=== PATIENT | male | born 1950 | race African-American/Black ===

== ENCOUNTER 2017-03-17 15:28 | Emergency (ER) | payer MEDICARE, OTHER ==
[~2017-03-17] VITALS: Ht 182.9 cm; Wt 93.0 kg
[2017-03-17 15:28] VITALS: BP 100/68
[~2017-03-17 15:28] MED LIST: ACET500T68 PO; AMLO5TAB4 PO; ASPI325T8 PO; ATOR20TA58 PO; ATROPINE; BISA10SU2 RC; CARV3.122 PO; DIVA125C PO; DOCU100T5 PO; FLUV100T2 PO; FLUV25TA PO; LEVE500T6 PO; MAGN2400 PO; MECL12.52 PO; MELA3TAB2 PO; MENT118G TP; MIRA25TA PO; MIRT15TA PO; MULT-658 PO; POLY17PO29 PO; QUET25TA PO; TRAZ100T12 PO; VOLTAREN GEL
--- NOTE | 2017-03-17 16:00 | RAD ---
Indication pain and swelling secondary to an injury. AP oblique and lateral views of the right ankle were obtained. There is an oblique, nondisplaced, traumatic fracture involving the lateral malleolus. There is soft tissue swelling. IMPRESSION: Fractured lateral malleolus, nondisplaced
[2017-03-17] MEDS ORDERED: TRAM50TA PO (16:02)
--- NOTE | 2017-03-17 16:02 | PHYS DOC ---
Past Medical History Past Medical History: Anemia, Anxiety, Constipation, CVA, Dementia, Depression , Hypertension, Seizure, Other Additional Past Medical Histor: INSOMNIA,HYPERLIPIDEMIA,CONTRACTURE RIGHT HAND/ ARM Past Surgical History: Other Additional Past Surgical Histo: Unknown Alcohol Use: None Drug Use: None Adult General Chief Complaint Chief Complaint: MECHANICAL FALL HPI HPI Patient is a pleasant 66-year-old -[place] male who is presently living at [facility] where last night while walking he slipped and fell and rotational motion injuring his right ankle. He was able to ambulate without issue although pain and swelling have increased and his inability to walk and equal is decreased. 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 Earlier today patient was sent to an outpatient imaging center having the ankle injured he had ankle series of x-rays completed. It was read initially as an ankle fracture involving the lateral malleolus with no displacement the joint alignment is maintained patient has mild soft tissue swelling. At that point long-term staff called the ambulance for transportation to our facility for an evaluation. At this point patient has no new numbness and tingling to his foot. He complains of pain to the lateral malleolus of the right ankle without foot pain. He denies any back pain, hip pain or knee pain on the right side. Review of Systems Review of Systems Constitutional: Denies fever or chills patient is hungry Eyes: Denies change in visual acuity, redness, or eye pain [] HENT: Denies nasal congestion or sore throat [] Respiratory: Denies cough or shortness of breath [] Cardiovascular: No additional information not addressed in HPI [] GI: Denies abdominal pain, nausea, vomiting, bloody stools or diarrhea [] : Denies dysuria or hematuria [] Musculoskeletal: Is only complaint is of right ankle pain. Integument: Denies rash or skin lesions [] Neurologic: Denies headache, focal weakness or sensory changes [] Endocrine: Denies polyuria or polydipsia [] Allergies Allergies Allergies Coded Allergies Type Severity Reaction Last Updated Verified No Known Drug Allergies 03/06/15 No Physical Exam Physical Exam Vital signs recorded patient's chart are unremarkable and if within normal limits. Constitutional: Well developed, well nourished, no acute distress, non-toxic appearance. [] Cardiovascular:Heart rate regular rhythm, no murmur [] Lungs & Thorax: Bilateral breath sounds clear to auscultation [] Skin: Warm, dry, no erythema, no rash. [] Extremities: No traits soft tissue swelling and to palpation of the lateral malleolus of the Neurologic: Alert and oriented X 3, normal motor function, normal sensory function, no focal deficits noted. [] Psychologic: Affect normal, judgement normal, mood normal. [] Current Patient Data Vital Signs Vital Signs Date Time Temp Pulse Resp B/P (MAP) Pulse Ox O2 Delivery O2 Flow Rate FiO2 03/17/17 15:28 99.4 68 18 100/68 (79) 94 Room Air 99.4 EKG EKG [] Radiology/Procedures Radiology/Procedures [] 3 view x-ray of the ankle completed at 3:50 PM 03/17/2017 demonstrates a nondisplaced lateral malleolus fracture with her class B without involvement of the joint alignment of the joint seems intact. There is severe degenerative joint changes within the joint itself. No evidence of subluxation of the talus. X-rays read by Dr. Garcia. Course & Med Decision Making Course & Med Decision Making Pertinent Labs and Imaging studies reviewed. (See chart for details) [] Dragon Disclaimer Dragon Disclaimer This electronic medical record was generated, in whole or in part, using a voice recognition dictation system. Departure Departure Impression: Primary Impression: Fx lateral malleolus-closed Disposition: 01 HOME, SELF-CARE Condition: STABLE Referrals: FREDI CHING MD (PCP) Patient Instructions: Ankle Fracture Additional Instructions: Please return for any new or increasing pain not treated with medications or feel any question concerns. Please return for any decreased sensation of the foot or if you have any inability to follow-up with orthopedic surgery. Scripts Tramadol Hcl (TRAMADOL HCL) 50 Mg Tablet 1 TAB PO PRN Q6HRS, #30 TAB Prov: MARYLIN GARCIA MD 03/17/17 MARYLIN GARCIA MD Mar 17, 2017 16:02
== END 2017-03-17 16:45 | disposition home or self-care (01) ==
LOC: ER 15:28
DX: S82.64XA Nondisplaced fracture of lateral malleolus of right fibula, initial encounter for closed fracture (principal); F03.91 Unspecified dementia, unspecified severity, with behavioral disturbance; E78.5 Hyperlipidemia, unspecified; F23 Brief psychotic disorder; F42.9 Obsessive-compulsive disorder, unspecified; G40.909 Epilepsy, unspecified, not intractable, without status epilepticus; I10 Essential (primary) hypertension; Z86.73 Personal history of transient ischemic attack (TIA), and cerebral infarction without residual deficits; Z86.2 Personal history of diseases of the blood and blood-forming organs and certain disorders involving the immune mechanism; W01.0XXA Fall on same level from slipping, tripping and stumbling without subsequent striking against object, initial encounter; Y93.89 Activity, other specified; Y99.8 Other external cause status; Y92.89 Other specified places as the place of occurrence of the external cause
CPT/HCPCS: 29515; 73610; 99284-25

== ENCOUNTER 2020-04-04 02:04 | Inpatient (IN) | payer MEDICARE, OTHER ==
[~2020-04-04] VITALS: Ht 188 cm; Wt 92.6 kg
[~2020-04-04 02:04] MED LIST changes: +ACET325T9 PO; +AMLO10TA4 PO; +AMOX500C PO; -BISA10SU2 RC; +BISA10SU4 RC; +CARV3.1210 PO; -CARV3.122 PO; -DIVA125C PO; +DIVA125C2 PO; -MAGN2400 PO; +MAGN24003 PO; -MECL12.52 PO; +MECL12.573 PO; -MELA3TAB2 PO; +MELA3TAB4 PO; +TRAM50TA PO; +TRAZ-123 PO; -TRAZ100T12 PO
--- NOTE | 2020-04-04 02:25 | PHYS DOC ---
Past Medical History Past Medical History: Anemia, Anxiety, Constipation, CVA, Dementia, Depression, High Cholesterol, Hypertension, Seizure, Other Additional Past Medical Histor: INSOMNIA,CONTRACTURE L HAND/ARM,BPH Past Surgical History: Other Additional Past Surgical Histo: Unknown Smoking Status: Never Smoker Alcohol Use: None Drug Use: None General Adult EDM: Chief Complaint: respiratory distress, COVID positive HPI: HPI: Patient is a 69 year old male who presents for evaluation of increasing respirator stress of the last couple of days. Patient is from a nursing facility with significant chronic medical problems. Patient has had a prior stroke and has contractures to his left upper arm. Patient states he had a recent productive cough. He was tested his facility and was positive for COVID in the past couple of days. Patient has known exposure to COVID as well. Patient arrived via EMS for evaluation. Patient is hypertensive with a blood pressure 88 over palp on presentation. Review of Systems: Review of Systems: Constitutional: has recent fever or chills. [] Eyes: Denies change in visual acuity. [] HENT: has nasal congestion [] Respiratory: has cough and shortness of breath. [] Cardiovascular: Denies chest pain has edema. [] GI: Denies abdominal pain, nausea, vomiting, bloody stools or diarrhea. [] : Denies dysuria. [] Musculoskeletal: Denies back pain or joint pain. [] Integument: Denies rash. [] Neurologic: Denies headache, has chronic left side focal weakness or sensory changes. [] Endocrine: Denies polyuria or polydipsia. [] Lymphatic: Denies swollen glands. [] Psychiatric: Denies depression or anxiety. [] Heart Score: HEART Score for Chest Pain: HEART Score for Chest Pain Response (Comments) Value History Slighlty/Non-Suspicious 0 ECG Normal 0 Age > 65 2 Risk Factors >3 Risk Factors or Hx CAD 2 Troponin < Normal Limit 0 Total 4 Risk Factors: Risk Factors: DM, Current or recent (<one month) smoker, HTN, HLP, family history of CAD, obesity. Risk Scores: Score 0 - 3: 2.5% MACE over next 6 weeks - Discharge Home Score 4 - 6: 20.3% MACE over next 6 weeks - Admit for Clinical Observation Score 7 - 10: 72.7% MACE over next 6 weeks - Early Invasive Strategies Current Medications: Current Medications Medications (Trade) Dose Ordered Sig/Tata Start Time Stop Time Status Last Admin Dose Admin Ceftriaxone Sodium (Rocephin) 1 gm 1X ONCE 04/04/20 02:30 04/04/20 02:31 Sodium Chloride 1,000 ml @ 100 mls/hr Q10H 04/04/20 02:30 04/04/20 12:29 Allergies: Allergies: Allergies Coded Allergies Type Severity Reaction Last Updated Verified No Known Drug Allergies 03/06/15 No Physical Exam: PE: Constitutional: Well developed, well nourished, moderate acute distress. [] HENT: Normocephalic, atraumatic, bilateral external ears normal, oropharynx somewhat dry, no oral exudates, nose normal. [] Eyes: PERRL, EOMI, conjunctiva normal, no discharge. [] Neck: Normal range of motion, no tenderness, supple, no stridor. [] Cardiovascular:Heart rate tachy regular rhythm, no murmur [] Lungs & Thorax: Bilateral breath sounds diminished to auscultation, some wheezing present [] Abdomen: Bowel sounds diminished, soft, no tenderness, no masses. [] Skin: Warm, dry, no erythema, no rash. [] Back: No tenderness. [] Extremities: No tenderness, no cyanosis, ROM intact, some edema. [] Neurologic: Alert and oriented, contracture left upper extremity. [] Psychologic: Affect abnormal, judgement normal, mood abnormal. [] Current Patient Data: Labs: Laboratory Tests Test 04/04/20 02:13 04/04/20 02:25 Lactic Acid Level 0.7 mmol/L White Blood Count 10.0 x10^3/uL Red Blood Count 4.11 x10^6/uL Hemoglobin 11.5 g/dL Hematocrit 34.5 % Mean Corpuscular Volume 84 fL Mean Corpuscular Hemoglobin 28 pg Mean Corpuscular Hemoglobin Concent 33 g/dL Red Cell Distribution Width 14.9 % Platelet Count 312 x10^3/uL Neutrophils (%) (Auto) 86 % Lymphocytes (%) (Auto) 7 % Monocytes (%) (Auto) 7 % Eosinophils (%) (Auto) 0 % Basophils (%) (Auto) 0 % Neutrophils # (Auto) 8.5 x10^3/uL Lymphocytes # (Auto) 0.7 x10^3/uL Monocytes # (Auto) 0.7 x10^3/uL Eosinophils # (Auto) 0.0 x10^3/uL Basophils # (Auto) 0.0 x10^3/uL Platelet Estimate Pending Sodium Level 135 mmol/L Potassium Level 4.1 mmol/L Chloride Level 101 mmol/L Carbon Dioxide Level 26 mmol/L Anion Gap 8 Blood Urea Nitrogen 29 mg/dL Creatinine 1.4 mg/dL Estimated GFR (Cockcroft-Gault) 60.4 BUN/Creatinine Ratio 21 Glucose Level 110 mg/dL Calcium Level 8.2 mg/dL Total Bilirubin 1.6 mg/dL Aspartate Amino Transf (AST/SGOT) 68 U/L Alanine Aminotransferase (ALT/SGPT) 54 U/L Alkaline Phosphatase 105 U/L Troponin I Quantitative < 0.017 ng/mL GX-Djo-V-Type Natriuretic Peptide 149 pg/mL Total Protein 7.3 g/dL Albumin 2.3 g/dL Albumin/Globulin Ratio 0.5 Current Medications Medications (Trade) Dose Ordered Sig/Tata Route PRN Reason Start Time Stop Time Status Last Admin Dose Admin Sodium Chloride 1,000 ml @ 100 mls/hr Q10H IV 04/04/20 02:30 04/04/20 12:29 04/04/20 02:51 Ceftriaxone Sodium (Rocephin) 1 gm 1X ONCE IVP 04/04/20 02:30 04/04/20 02:31 DC 04/04/20 02:52 Methylprednisolone Sodium Succinate (SOLU-Medrol 125MG VIAL) 125 mg 1X ONCE IV 04/04/20 03:00 04/04/20 03:01 DC 04/04/20 02:52 EKG: EKG: Normal sinus rhythm, rate 66, leftward axis, some flattened T waves noted in V6, artifact present, not STEMI read at 2:53 AM [] Radiology/Procedures: Radiology/Procedures: [facility] [address] [place], [place] [id number] IMAGING REPORT Signed PATIENT: CARISA CHEEMA ACCOUNT: [id number] : 1950 LOCATION: ER AGE: 69 SEX: M EXAM STATUS: REG ER ORD. PHYSICIAN: CHRISTY YOUNGBLOOD DO REASON: short of air, COVID positive PROCEDURE: PORTABLE CHEST 1V Study: CR PORTABLE CHEST 1V Indication: Shortness of air. Comparison: 02/18/2019 Findings: Unchanged configuration of the cardiomediastinal silhouette which is at the upper limits of normal for size. Vascular calcifications. Redemonstrated asymmetric elevation of the left hemidiaphragm with overlying volume loss. Ill-defined infiltrate at the right lower lung. No layering effusion or pneumothorax. Partially imaged chronic deformity at the proximal left humerus. Impression: Ill-defined infiltrate at the lower right lung either atelectasis or infectious in etiology. Follow-up is recommended to confirm resolution. Electronically signed by: ANTONIA BADILLO MD (04/04/2020 4:10 AM) [id number] DICTATED and SIGNED BY: ANTONIA BADILLO MD DATE: 04/04/20 0410 [] Course & Med Decision Making: Course & Med Decision Making Pertinent Labs and Imaging studies reviewed. (See chart for details) [] Dragon Disclaimer: Dragon Disclaimer: This electronic medical record was generated, in whole or in part, using a voice recognition dictation system. 0415 stable, breathing somewhat easier at this time. There is an early infiltrate noted on his x-ray. I suspect patient has COVID pneumonia. He has a positive result from his nursing facility. Patient will admitted for stabilization. Paperwork shows that Dr. Mead is his physician. He will be paged now to discuss case Departure Departure Impression: Primary Impression: Pneumonia due to COVID-19 virus Additional Impression: Hypoxia Disposition: ADMITTED INPATIENT Condition: STABLE Referrals: FREDI MEAD MD (PCP) Justicifation of Admission Dx: Justifications for Admission: Justification of Admission Dx: Yes Comments: COVID pneumonia with hypoxia COVID-19 Assessment: COVID-19 Patient Risks: Age 65 or older: Yes Sign of co-morbidity: Yes Exp to person + for COVID: Yes Exp to PUI: Yes Travel from affected area: No Lower respiratory symptoms: Yes Fever: Yes Other: Yes Comments: known COVID positive prior to arrival PPE Use: Full PPE with N95 mask or PAPR: Yes CHRISTY YOUNGBLOOD DO Apr 04, 2020 02:25
[2020-04-04] MEDS ORDERED: cefTRIAXone IV Push 1 GM VIAL. IVP ONE (02:30)
[2020-04-04] MEDS ORDERED: IV NORMAL SALINE 1000ML BAG 1,000 ML IV SCH (02:30)
[2020-04-04 02:36] LABS: BASO % 0 % (0-3); EOS % 0 % (0-3); HEMATOCRIT 34.5 % (39.0-53.0); HEMOGLOBIN 11.5 g/dL (13.0-17.5); LYMPH # 0.7 x10^3/uL (1.0-4.8); LYMPH % 7 % (24-48); MEAN CORPUSCULAR HEMOGLOBIN 28 pg (25-35); MEAN CORPUSCULAR HGB CONC 33 g/dL (31-37); MEAN CORPUSCULAR VOLUME 84 fL (79-100); MONO # 0.7 x10^3/uL (0.0-1.1); MONO % 7 % (0-9); NEUT # 8.5 x10^3/uL (1.8-7.7); NEUT % 86 % (31-73); PLATELET COUNT 312 x10^3/uL (140-400); RED BLOOD COUNT 4.11 x10^6/uL (4.30-5.70); RED CELL DISTRIBUTION WIDTH 14.9 % (11.5-14.5)
[2020-04-04] MEDS ORDERED: methylPREDNISolone SOD SUCC PF 125 MG/2 ML VIAL. IV ONE (03:00)
[2020-04-04 03:05] LABS: CALCIUM 8.2 mg/dL (8.5-10.1); CREATININE 1.4 mg/dL (0.7-1.3); GFR 60.4; POTASSIUM 4.1 mmol/L (3.5-5.1)
[2020-04-04 03:11] LABS: ALBUMIN 2.3 g/dL (3.4-5.0); ALBUMIN/GLOBULIN RATIO 0.5 (1.0-1.7); TOTAL BILIRUBIN 1.6 mg/dL (0.2-1.0); TOTAL PROTEIN 7.3 g/dL (6.4-8.2)
--- NOTE | 2020-04-04 04:13 | RAD ---
Study: CR PORTABLE CHEST 1V Indication: Shortness of air. Comparison: 02/18/2019 Findings: Unchanged configuration of the cardiomediastinal silhouette which is at the upper limits of normal for size. Vascular calcifications. Redemonstrated asymmetric elevation of the left hemidiaphragm with overlying volume loss. Ill-defined infiltrate at the right lower lung. No layering effusion or pneumothorax. Partially imaged chronic deformity at the proximal left humerus. Impression: Ill-defined infiltrate at the lower right lung either atelectasis or infectious in etiology. Follow-up is recommended to confirm resolution. Electronically signed by: ANTONIA BADILLO MD (04/04/2020 4:10 AM) [id number]
[2020-04-04 04:23] LABS: BILIRUBIN,URINE MODERATE (NEG); CLARITY,URINE CLEAR; COLOR,URINE ORANGE; NITRITE,URINE NEGATIVE (NEG); PH,URINE 5.5 (<5.0-8.0); PROTEIN,URINE 100 mg/dL (NEG-TRACE)
[2020-04-04 04:35] LABS: % ATYL 2 % (0-0); % LYMPHS 6 % (24-48); % MONOS 5 % (0-10); % SEGS 87 % (35-66); NUCLEATED RBC 1; PLT ESTIMATE ADEQUATE (ADEQUATE)
[2020-04-04 04:39] LABS: AMORPHOUS SEDIMENT,UR PRESENT /HPF; BACTERIA,URINE 0 /HPF (0-FEW); RBC,URINE OCC /HPF (0-2); SQUAMOUS EPITHELIAL CELL,UR FEW /LPF; WBC,URINE OCC /HPF (0-4)
[2020-04-04] MEDS ORDERED: ONDANSETRON PF 4 MG/2 ML VIAL. IV PRN (04:45)
--- NOTE | 2020-04-04 05:16 | EKG ---
[facility] [address] [place] [address] Test Date: 2020-04-04 Test Time: 02:48:57 Pat Name: CARISA CHEEMA Department: Room: Gender: M Density Control Puncher: : 1950 Requested By: CHRISTY YOUNGBLOOD Order Number: [id number] Reading MD: Measurements Intervals [place] Rate: 66 P: 44 GA: 180 QRS: -8 QRSD: 80 T: 52 QT: 408 QTc: 429 Interpretive Statements SINUS RHYTHM LEFTWARD AXIS OTHERWISE NORMAL ECG RI6.02 No previous ECG available for comparison
[2020-04-04 08:20] VITALS: BP 119/75
--- NOTE | 2020-04-04 08:39 | NUR ---
Pt arrived on unit at 0815 from ER via bed. Pt currently on 2L NC, sats 97%. Pt denies pain at this time. NS running @ 100. Will review orders and assume care of this pt.
[2020-04-04 11:00] VITALS: BP 151/79
[2020-04-04] MEDS ORDERED: TAMS0.4C97 PO (11:53)
[2020-04-04] MEDS ORDERED: MENT118G TP (11:53)
[2020-04-04] MEDS ORDERED: ZINC220C7 PO (11:53)
[2020-04-04] MEDS ORDERED: MELA3TAB4 PO (11:53)
[2020-04-04] MEDS ORDERED: LACT1CAP19 PO (11:53)
[2020-04-04] MEDS ORDERED: GUAI473L15 PO (11:53)
[2020-04-04] MEDS ORDERED: TRAZ-118 PO (11:53)
[2020-04-04] MEDS ORDERED: LISI10TA2 PO (11:53)
[2020-04-04] MEDS ORDERED: ASPI-630 PO (11:53)
[2020-04-04 14:42] VITALS: BP 133/72
--- NOTE | 2020-04-04 17:33 | NUR ---
SW following. Reviewed chart and spoke with RN. Pt on 2l 02. Pt COVID positive. Pt on oral medications. SW to follow as needed.
[2020-04-04 19:00] VITALS: BP 137/80
[2020-04-04 23:00] VITALS: BP 128/86
[2020-04-05 03:00] VITALS: BP 131/82
[2020-04-05 07:00] VITALS: BP 137/83
[2020-04-05] MEDS ORDERED: ACETAMINOPHEN 325 MG TABLET. PO PRN (10:45)
[2020-04-05] MEDS ORDERED: guaiFENesin/CODEINE 100mg/10mg 5 ML LIQUID PO PRN (10:45)
[2020-04-05] MEDS ORDERED: POLYETHYLENE GLYCOL 3350 17 GM PACKET. PO PRN (10:45)
[2020-04-05 11:00] VITALS: BP 123/76
[2020-04-05] MEDS: ASPIRIN CHEWABLE 81 MG TABLET. PO SCH (11:23)
[2020-04-05] MEDS: TAMSULOSIN 0.4 MG CAP.ER.24H. PO SCH (11:23)
[2020-04-05] MEDS: MECLIZINE HCL 12.5 MG TABLET. PO SCH ×3 (11:23→20:54)
[2020-04-05] MEDS: ZINC SULFATE 220 MG CAPSULE. PO SCH (11:24)
[2020-04-05] MEDS: CARVEDILOL 3.125 MG TABLET. PO SCH ×2 (11:24→18:46)
[2020-04-05] MEDS: amLODIPine BESYLATE 10 MG TABLET PO SCH (11:25)
[2020-04-05] MEDS: LACTOBACILLUS RHAMNOSUS GG 1 CAPSULE. PO SCH (11:26)
--- NOTE | 2020-04-05 11:41 | PN ---
DATE: 04/05/2020 SUBJECTIVE: The patient is very restless, agitated, wants to get up and out of the bed and wanted to use his wheelchair and he also continued to have cough, which is mostly dry. Did complain of shortness of breath and chest tightness and wheezing. His oxygen saturation on 2 liters is only 84%, so I increased the flow to 5 liters and his oxygen improved. PHYSICAL EXAMINATION: GENERAL: When I examined him, he was somewhat agitated, but he was slightly pale, but no jaundice, cyanosis, or thyromegaly. No jugular venous distention. No lower limb edema. VITAL SIGNS: His heart rate was 66, blood pressure was 109/67, temperature was 98.5, respiratory rate was 18, and oxygen saturation was 97% on 2 liters of oxygen. HEAD, EYES, EARS, NOSE, AND THROAT: Showed normocephalic, atraumatic. NECK: Supple. HEART: Normal first and second heart sounds. No gallop or murmur. CHEST: Shows central trachea, equal bilateral expansion, air entry, vesicular sounds. I could not really appreciate any crepitation, but few scattered rhonchi. ABDOMEN: Distended, soft, nontender. NEUROLOGIC: He is awake, alert, somewhat confused; however, all his cranial nerves are intact. He has left-sided hemiplegia. He is mostly bedbound, wheelchair bound. His intake over the last 24 hours was 1000; no output was recorded. No lab work was done this morning. ASSESSMENT: 1. COVID-19 pneumonia. 2. Perhaps a superimposed healthcare-associated pneumonia. 3. Acute hypoxic respiratory failure, is normal. He is not on oxygen at home. He has also multiple other medical problems, including hypertension, hyperlipidemia, right middle cerebral artery territory infarct with left-sided hemiplegia. PLAN: I reconciled all his medications. I will start him on IV vancomycin, Zosyn as well as dexamethasone. I have consulted the network consultant to assist with his management. I did increase his oxygen to 5 liters by nasal cannula. He seemed to be retaining urine, so I asked the nurse to scan his bladder and if need be to put an indwelling Mathews catheter for the time being. FREDI CHING MD DR: SAMAN/dago JOB#: [id number] / [id number]
--- NOTE | 2020-04-05 11:42 | HP ---
ADMIT DATE: 04/04/2020 HISTORY OF PRESENT ILLNESS: The patient is a 69-year-old -[place] Citizen male patient, a resident at [facility], who was apparently known to be positive for COVID-19 and apparently was brought to the Emergency Room as he has been complaining of increasing shortness of breath, cough, which is apparently mostly dry. He was evaluated in the Emergency Room and has had lab work and his white cell count was only 10,000. Your chemistry was unremarkable. His chest x-ray showed that the patient has ill-defined infiltrate in the right lung, either atelectasis or infection in etiology. Followup is recommended to confirm resolution. The patient was admitted with acute hypoxic respiratory failure, COVID pneumonia, was continued on his other medications. I actually spoke with ER physician and was supposed to be on healthcare-associated pneumonia protocol unfortunately, no orders were done there. PAST MEDICAL HISTORY: Significant for multitude of medical problems including hypertension, hyperlipidemia, seizure disorder, depression, and insomnia. He is also known to have right middle cerebral artery territory infarct with sided hemiplegia. PAST SURGICAL HISTORY: Unremarkable. FAMILY HISTORY: Unremarkable. SOCIAL HISTORY: He is a resident at [facility]. He does not smoke, drink alcohol or use recreational drugs. He is mostly wheelchair bound, although he attempts at times to stand and walk. He is unsteady. ALLERGIES: He has no known drug allergies. MEDICATIONS: He is currently on following medications: He is on tamsulosin 0.4 mg at bedtime, atorvastatin calcium 20 mg at bedtime, carvedilol 3.125 mg twice a day, amlodipine besylate 10 mg once a day, lisinopril 10 mg once a day, aspirin 81 mg once a day, acetaminophen 650 mg every 6 hours, fluvoxamine maleate 100 mg daily, fluvoxamine maleate 50 mg daily, mirtazapine 50 mg at bedtime, trazodone 75 mg at bedtime. He is on quetiapine fumarate 50 mg at bedtime, zinc sulfate 220 mg once a day, guaifenesin with codeine phosphate 10 mL every 4 hours as needed, Colace 200 mg twice a day, milk of magnesia 30 mL p.o. daily p.r.n. for constipation, polyethylene glycol 17 grams daily, meclizine 12.5 mg twice a day, lactobacillus rhamnosus 2 capsules daily and Myrbetriq 25 mg daily, multivitamin with mineral for Centrum Silver 1 tablet once a day, melatonin 3 mg tablet, he takes 3 tablets at bedtime. REVIEW OF SYSTEMS: As per history of present illness. The patient complained mostly of cough, shortness of breath and chest tightness. Denied any chest pain, denied any phlegm or hemoptysis. PHYSICAL EXAMINATION: GENERAL: On arrival to the Emergency Room, the patient was somewhat pale, but no jaundice, cyanosis or thyromegaly. No jugular venous distention. No limb edema. VITAL SIGNS: He heart rate was 72, blood pressure was 89/59, temperature was 98.5, respiratory rate was 18 and oxygen saturation was 95% on 2 liters of oxygen. HEAD, EYES, EARS, NOSE AND THROAT: Showed normocephalic, atraumatic. NECK: Supple. CARDIAC: Normal first and second heart sounds. No gallop, rub or murmur. CHEST: Showed central trachea, equal bilateral chest expansion, air entry, vesicular breath sounds. I could not really appreciate any crepitation, but few scattered rhonchi. ABDOMEN: Distended, soft, nontender. NEUROLOGIC: He was awake, alert, somewhat confused, has right middle cerebral artery territory infarct with left sided hemiplegia. He is mostly wheelchair bound. LABORATORY DATA: His lab work on arrival to the Emergency Room showed that his white cell count was 10,000, hemoglobin 11.5, hematocrit 34.5, MCV 84 and platelet count 312,000. His chemistry showed a serum sodium 135, potassium 4.1, chloride 101, bicarbonate 26, anion gap of 8, BUN 29, creatinine 1.4, estimated GFR was 60 mL per minute, his glucose was 110, lactic acid was 0.7, calcium was 8.2. Total bilirubin, AST, ALT, alkaline phosphatase slightly elevated. He beta natriuretic peptide was 149. Total protein was 7.3, albumin 2.3. His urinalysis showed the urine was orange clear with a pH of 5.5, specific gravity 1.025. Total protein was 100. The urine was negative for glucose, small amount of ketones, negative for blood, nitrite and leukocyte esterase, occasional rbc's, occasional wbc's, and very few bacteria. ASSESSMENT AND PLAN: His chest x-ray showed the patient has symmetrical elevation of the left hemidiaphragm with overlying volume loss and ill-defined infiltrate at the right lower lung. No layering effusion or pneumothorax, partially imaged chronic deformity of the proximal left humerus with the impression the patient has ill-defined infiltrate at the lower right lung, either atelectasis or infectious in etiology. Followup is recommended to confirm resolution. We will start him on IV Zosyn as well as vancomycin. I will also add dexamethasone and we will consult the journeyman pipe welder. FREDI CHING MD DR: SAMAN/dago JOB#: [id number] / [id number]
--- NOTE | 2020-04-05 11:51 | NUR ---
SW following. Reviewed chart and spoke with RN. Spoke with Dr. Mead and pt is not ready for discharge. Pt resides in LTC at [facility], , (fax). Pt COVID positive. Pt on 2l 02. Pulmonary consulted. SW to follow.
[2020-04-05 15:00] VITALS: BP 132/82
[2020-04-05] MEDS: VANCOMYCIN 2 GM in IV NORMAL SALINE 500ML BAG 500 ML IV ONE (16:01)
[2020-04-05] MEDS: DEXAMETHASONE 4 MG TABLET PO SCH (16:02)
[2020-04-05] MEDS: PIPERACILLIN/TAZOBACTAM 3.375 GM in IV NORMAL SALINE 50ML 50 ML IV SCH ×2 (16:02→18:00)
[2020-04-05] MEDS: VANCOMYCIN PER PHARMACY MC PRN (17:03)
--- NOTE | 2020-04-05 17:09 | NUR ---
Pharmacy Vancomycin Dosing Note S:Consulted to monitor and dose vancomycin started 04/05/20. O:CARISA CHEEMA is a 69 year old M with Pneumonia Height: 6 feet, 2 inches Weight: 95.0 kg [place] Body Weight: 82.20 Adjusted Body Weight: 87.32 Dosing Weight: Actual Other Antibiotics: ZOSYN LABS: Last BUN: 29 Last Creatinine: 1.4 Creatinine Clearance: 60 mL/min Last WBC: 10 Last Procalcitonin: Tmax (past 24 hours): 98.6 Microbiology: - I/O: 1540/825 Last dose given 04/05/20 at 1601 Vancomycin Dosing: Loading Dose: 2000 mg x1 Dosing Weight: Actual Target Trough: 15-20 A: Based on: weight and renal function P: 1. Begin Vancomycin 1500 mg IV q24h 2. Follow up Trough level on 04/07/20 at 1530 3. Pharmacy will continue to monitor, follow and adjust therapy as needed. Rajni Simms RPH, 04/05/20 [id number]
--- NOTE | 2020-04-05 17:24 | PDOC ---
PULMONARY PROGRESS NOTES DATE: 04/05/20 TIME: 17:23 Vitals Vital Signs Date Time Temp Pulse Resp B/P (MAP) Pulse Ox O2 Delivery O2 Flow Rate FiO2 04/05/20 15:00 98.6 66 20 132/82 (99) 92 Nasal Cannula 2.0 98.6 Labs Laboratory Tests Test 04/04/20 02:13 04/04/20 02:25 04/04/20 04:11 Lactic Acid Level 0.7 mmol/L (0.4-2.0) White Blood Count 10.0 x10^3/uL (4.0-11.0) Red Blood Count 4.11 x10^6/uL (4.30-5.70) Hemoglobin 11.5 g/dL (13.0-17.5) Hematocrit 34.5 % (39.0-53.0) Mean Corpuscular Volume 84 fL (79-100) Mean Corpuscular Hemoglobin 28 pg (25-35) Mean Corpuscular Hemoglobin Concent 33 g/dL (31-37) Red Cell Distribution Width 14.9 % (11.5-14.5) Platelet Count 312 x10^3/uL (140-400) Neutrophils (%) (Auto) 86 % (31-73) Lymphocytes (%) (Auto) 7 % (24-48) Monocytes (%) (Auto) 7 % (0-9) Eosinophils (%) (Auto) 0 % (0-3) Basophils (%) (Auto) 0 % (0-3) Neutrophils # (Auto) 8.5 x10^3/uL (1.8-7.7) Lymphocytes # (Auto) 0.7 x10^3/uL (1.0-4.8) Monocytes # (Auto) 0.7 x10^3/uL (0.0-1.1) Eosinophils # (Auto) 0.0 x10^3/uL (0.0-0.7) Basophils # (Auto) 0.0 x10^3/uL (0.0-0.2) Segmented Neutrophils % 87 % (35-66) Lymphocytes % 6 % (24-48) Atypical Lymphocytes % (Manual) 2 % (0-0) Monocytes % 5 % (0-10) Nucleated Red Blood Cells 1 Platelet Estimate Adequate (ADEQUATE) Sodium Level 135 mmol/L (136-145) Potassium Level 4.1 mmol/L (3.5-5.1) Chloride Level 101 mmol/L (98-107) Carbon Dioxide Level 26 mmol/L (21-32) Anion Gap 8 (6-14) Blood Urea Nitrogen 29 mg/dL (8-26) Creatinine 1.4 mg/dL (0.7-1.3) Estimated GFR (Cockcroft-Gault) 60.4 BUN/Creatinine Ratio 21 (6-20) Glucose Level 110 mg/dL (70-99) Calcium Level 8.2 mg/dL (8.5-10.1) Total Bilirubin 1.6 mg/dL (0.2-1.0) Aspartate Amino Transf (AST/SGOT) 68 U/L (15-37) Alanine Aminotransferase (ALT/SGPT) 54 U/L (16-63) Alkaline Phosphatase 105 U/L (46-116) Troponin I Quantitative < 0.017 ng/mL (0.000-0.055) RE-Nvb-[id number]-Type Natriuretic Peptide 149 pg/mL (0-124) Total Protein 7.3 g/dL (6.4-8.2) Albumin 2.3 g/dL (3.4-5.0) Albumin/Globulin Ratio 0.5 (1.0-1.7) Urine Collection Type Unknown Urine Color [place] Urine Clarity Clear Urine pH 5.5 (<5.0-8.0) Urine Specific Saline 1.025 (1.000-1.030) Urine Protein 100 mg/dL (NEG-TRACE) Urine Glucose (UA) Negative mg/dL (NEG) Urine Ketones (Stick) 15 mg/dL (NEG) Urine Blood Negative (NEG) Urine Nitrite Negative (NEG) Urine Bilirubin Moderate (NEG) Urine Urobilinogen Dipstick 4.0 mg/dL (0.2 mg/dL) Urine Leukocyte Esterase Trace (NEG) Urine RBC Occ /HPF (0-2) Urine WBC Occ /HPF (0-4) Urine Squamous Epithelial Cells Few /LPF Urine Amorphous Sediment Present /HPF Urine Bacteria 0 /HPF (0-FEW) Urine Mucus Marked /LPF Medications Active Scripts Medications Dose Route/Sig Max Daily Dose Days Date Category Guaifenesin Ac Cough Syrup (Guaifenesin/Codeine Phosphate) 473 Ml Liquid 10 Ml PO PRN Q4HRS PRN MDD 60 Milliliter(s) 04/04/20 Reported Biofreeze (Menthol) 118 Ml Gel..ml. 1 Liban TP PRN Q3HRS PRN 7 04/04/20 Reported Culturelle (Lactobacillus Rhamnosus Gg) 1 Each Cap.sprink 2 Cap PO DAILY 30 04/04/20 Reported Zinc Sulfate 220 Mg Capsule 220 Mg PO DAILY 04/04/20 Reported Trazodone Hcl 50 Mg Tablet 1.5 Tab PO QHS 04/04/20 Reported Melatonin 3 Mg Tablet 3 Tab PO QHS 04/04/20 Reported Lisinopril 10 Mg Tablet 1 Tab PO HS 04/04/20 Reported Flomax (Tamsulosin Hcl) 0.4 Mg Cap.er.24h 0.4 Mg PO DAILY 04/04/20 Reported Aspirin 81 Mg Tab.chew 1 Tab PO DAILY 04/04/20 Reported Norvasc (Amlodipine Besylate) 10 Mg Tablet 10 Mg PO DAILY 01/21/19 Reported Carvedilol (Carvedilol) 3.125 Mg Tablet 1 Tab PO BID 08/06/17 Rx Tylenol (Acetaminophen) 325 Mg Tablet 2 Tab PO PRN Q6HRS PRN 08/02/17 Reported Meclizine Hcl 12.5 Mg Tablet 1 Tab PO BID 03/01/17 Reported Centrum Silver Tablet (Multivits-Min/Fa/Lycopene/Lut) 1 Each Tablet 1 Each PO DAILY 03/01/17 Reported Quetiapine Fumarate 25 Mg Tablet 50 Mg PO QHS 12/08/15 Reported Remeron (Mirtazapine) 15 Mg Tablet 1 Tab PO QHS 12/08/15 Reported Myrbetriq (Mirabegron) 25 Mg Tab.er.24h 25 Mg PO DAILY 12/08/15 Reported Miralax (Polyethylene Glycol 3350) 17 Gm Powd.pack 1 Packet PO BID PRN 12/08/15 Reported Milk Of Magnesia (Magnesium Hydroxide) 2,400 Mg/10 Ml Oral.susp 2,400 Mg PO DAILY PRN 12/08/15 Reported Fluvoxamine Maleate 25 Mg Tablet 50 Mg PO DAILY 12/08/15 Reported Fluvoxamine Maleate 100 Mg Tablet 1 Tab PO DAILY 12/08/15 Reported Docusate Sodium 100 Mg Tablet 200 Mg PO BID 12/08/15 Reported Atorvastatin Calcium 20 Mg Tablet 1 Tab PO QHS 12/08/15 Reported Impression . Full note dictated, abnormal x-ray compatible with pneumonia, gram- negative/possible KAN GOMEZ MD Apr 05, 2020 17:24
[2020-04-05] MEDS ORDERED: ALBUTEROL SULFATE 2.5 MG/3 ML NEBU. NEB PRN (17:30)
[2020-04-05] MEDS: ENOXAPARIN 40 MG/0.4 ML SYRINGE. SQ SCH (18:00)
[2020-04-05 19:53] VITALS: BP 125/72
[2020-04-05] MEDS: traZODone 50 MG TABLET. PO SCH ×2 (20:12→20:54)
[2020-04-05] MEDS: MIRTAZAPINE 15 MG TABLET PO SCH ×2 (20:12→20:55)
[2020-04-05] MEDS: QUEtiapine 25 MG TABLET. PO SCH ×2 (20:12→20:55)
[2020-04-05] MEDS: LISINOPRIL 10 MG TABLET PO SCH ×2 (20:13→20:54)
[2020-04-05] MEDS: ATORVASTATIN CALCIUM 20 MG TABLET PO SCH ×2 (20:13→20:54)
--- NOTE | 2020-04-05 21:35 | CONS ---
DATE OF CONSULTATION: 04/05/2020 ATTENDING PHYSICIAN: Dr. Mead. CONSULTING PHYSICIAN: Kan Gomez MD REASON FOR CONSULTATION: The patient is seen in pulmonary consultation at the request of Dr. Mead for abnormal x-ray. HISTORY OF PRESENT ILLNESS: The patient is a 69-year-old -[place] male that resides at a long term. He has been tested positive in the past for SARS-CoV-2. He was brought to the Emergency Room complaining of increasing shortness of breath, dry cough. In the Emergency Room, he was found to have abnormal x-ray revealing right lower lobe infiltrate. I was asked to see him in consultation. The patient denies any current hemoptysis, no fever or chills. No chest pain or pressure. He is somewhat confused. 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 PAST SURGICAL HISTORY: Unremarkable. FAMILY HISTORY: Noncontributory in this case. SOCIAL HISTORY: He resides at a long term. No history of tobacco. ALLERGIES: No known drug allergies. CURRENT MEDICATIONS: List was reviewed. REVIEW OF SYSTEMS: As indicated above, otherwise other systems could not be adequately reviewed. The patient is somewhat confused. PHYSICAL EXAMINATION: VITAL SIGNS: Stable. O2 saturation was greater than 92%. He is currently on 2 liters. Since admission, he has had improved T-max of 99.2. HEENT: Eyes, the sclerae were nonicteric. NECK: Jugular venous distention was not elevated. No lymphadenopathy. CHEST: Full expansion. LUNGS: Adequate flow with no wheezes. CARDIOVASCULAR: Regular rate and rhythm with S1, S2, no S3. ABDOMEN: Soft, nontender, nondistended. EXTREMITIES: No clubbing, cyanosis or edema. NEUROLOGICAL: The patient is awake, alert, following commands. A detailed neuro exam was not performed. RADIOGRAPHIC DATA: Chest x-rays as indicative of normal. IMPRESSION: 1. Abnormal x-ray compatible with right lower lobe infiltrate, possible gram positive/gram negative pneumonia. 2. COVID-19, the patient is positive for SARS-CoV-2 from the long term. 3. Acute respiratory failure. 4. Progressive dyspnea secondary to above. 5. History of cerebrovascular accident. 6. Dementia. 7. Depression. 8. Hypertension. PLAN: 1. Recommend to continue with broad-spectrum antibiotics. The patient is currently on vancomycin and piperacillin. 2. Continue home medications. 3. Deep venous thrombosis prophylaxis. 4. Oxygen supplementation. I do appreciate the privilege in sharing in the patient's care. KAN GOMEZ MD DR: CRISPIN/dago JOB#: [id number] / [id number]
--- NOTE | 2020-04-05 23:45 | NUR ---
Patient is refusing to take HS medications. He is also refusing new IV placement for IV antibiotics. Patient pulled last IV out during day shift today. Explained to patient multiple times the importance of his medications and IV antibiotics. Patient is very confused and not comprehending the information. He continues to tell this nurse "no, go away" and "give me a minute". Will continue to try and reorient and encourage patient.
[2020-04-05 23:51] VITALS: BP 129/83
[2020-04-06] MEDS: VANCOMYCIN 2 GM in IV NORMAL SALINE 500ML BAG 500 ML IV ONE (00:24)
--- NOTE | 2020-04-06 00:42 | NUR ---
Patient agreed to let this nurse start new IV. IV placed in right forearm and IV Vanco started at 0024.
[2020-04-06] MEDS: PIPERACILLIN/TAZOBACTAM 3.375 GM in IV NORMAL SALINE 50ML 50 ML IV SCH ×5 (02:21→23:30)
[2020-04-06 03:22] VITALS: BP 134/84
[2020-04-06 04:40] LABS: HEMATOCRIT 37.3 % (39.0-53.0); HEMOGLOBIN 12.1 g/dL (13.0-17.5); RED BLOOD COUNT 4.38 x10^6/uL (4.30-5.70); WHITE BLOOD COUNT 13.7 x10^3/uL (4.0-11.0)
[2020-04-06 05:14] LABS: ALBUMIN 2.2 g/dL (3.4-5.0); ALBUMIN/GLOBULIN RATIO 0.5 (1.0-1.7); CALCIUM 8.8 mg/dL (8.5-10.1); CREATININE 1.1 mg/dL (0.7-1.3); GFR 79.8; POTASSIUM 3.6 mmol/L (3.5-5.1); TOTAL BILIRUBIN 0.8 mg/dL (0.2-1.0)
[2020-04-06 05:30] LABS: C-REACTIVE PROTEIN 86.6 mg/L (0-3.3)
[2020-04-06 07:18] VITALS: BP 132/75
[2020-04-06] MEDS: TAMSULOSIN 0.4 MG CAP.ER.24H. PO SCH (09:05)
[2020-04-06] MEDS: amLODIPine BESYLATE 10 MG TABLET PO SCH (09:05)
[2020-04-06] MEDS: MECLIZINE HCL 12.5 MG TABLET. PO SCH ×3 (09:05→23:00)
[2020-04-06] MEDS: ZINC SULFATE 220 MG CAPSULE. PO SCH (09:05)
[2020-04-06] MEDS: DEXAMETHASONE 4 MG TABLET PO SCH (09:06)
[2020-04-06] MEDS: CARVEDILOL 3.125 MG TABLET. PO SCH ×2 (09:06→17:11)
[2020-04-06] MEDS: LACTOBACILLUS RHAMNOSUS GG 1 CAPSULE. PO SCH (09:06)
[2020-04-06] MEDS: ASPIRIN CHEWABLE 81 MG TABLET. PO SCH (09:06)
[2020-04-06] MEDS: ENOXAPARIN 40 MG/0.4 ML SYRINGE. SQ SCH ×3 (09:07→23:00)
--- NOTE | 2020-04-06 11:11 | PN ---
DATE: 04/06/2020 SUBJECTIVE: The patient is resting flat in bed, sleeping comfortably, in no apparent distress. On questioning him, he denied any complaint. The nursing staff did not voice any concerns that he is actually much calmer and quieter overnight, although was very restless and agitated yesterday. PHYSICAL EXAMINATION: GENERAL: When I examined him, he looked pale, but no jaundice, cyanosis or thyromegaly. No jugular venous distention. No limb edema. VITAL SIGNS: His heart rate was 80, blood pressure was 132/75, temperature 97.4, respiratory rate was 22 and oxygen saturation was 96% on 2 liters of oxygen. HEAD, EYES, EARS, NOSE, AND THROAT: Showed normocephalic, atraumatic. NECK: Supple. HEART: Normal first and second heart sounds. No gallop, rub or murmur. CHEST: Clear to auscultation. No crepitation or rhonchi. ABDOMEN: Distended, soft, nontender. No guarding or rigidity. No organomegaly. All hernial orifices are intact. Bowel sounds normal. NEUROLOGIC: He is awake, alert, responding appropriately. All cranial nerves are intact. He has right middle cerebral artery territory infarct, left-sided hemiplegia. LABORATORY DATA: His intake over the last 24 hours was 1540 and output was 825. As of this morning, his white cell count was 13,700, hemoglobin 12, hematocrit 37, MCV 85 and platelet count of 407,000. His chemistry showed a serum sodium of 146, potassium 3.6, chloride 111, bicarbonate 27, anion gap of 8, BUN 24, creatinine 1.1, estimated GFR was 80 mL per minute. His glucose was 99. Calcium was 8.8. Total bilirubin, AST, ALT, alkaline phosphatase were normal. His C-reactive protein was high at 86.6. His total protein 7, albumin was 2.2. His D-dimer was high at 2.3. ASSESSMENT: 1. COVID-19 pneumonia. 2. Superimposed healthcare-associated pneumonia. 3. Acute hypoxic respiratory failure. Normally, he is not on any oxygen at home. 4. He has multiple other medical problems including: A. Hypertension. B. Hyperlipidemia. C. Right middle cerebral artery territory infarct, left-sided hemiplegia. PLAN: To continue with IV antibiotic. Continue with all his other medications. Continue with DVT prophylaxis. Continue with dexamethasone. We will follow him closely and await the result of blood and urine culture and sensitivity and adjust his medication as needed. FREDI CHING MD DR: SAMAN/dago JOB#: [id number] / [id number]
[2020-04-06 11:50] VITALS: BP 139/95
--- NOTE | 2020-04-06 12:42 | PDOC ---
PULMONARY PROGRESS NOTES DATE: 04/06/20 TIME: 12:38 Subjective PT. resting on 4 liters N/C No SOA, No Cough, No CP A-febrile overnight Vitals Vital Signs Date Time Temp Pulse Resp B/P (MAP) Pulse Ox O2 Delivery O2 Flow Rate FiO2 04/06/20 09:06 80 132/75 04/06/20 07:18 97.4 22 96 Nasal Cannula 2.0 97.4 Comments PT. seen during ID Pandemic Visual exam preformed RRR N/C No distress No edema or rash Labs Laboratory Tests Test 04/06/20 04:00 White Blood Count 13.7 x10^3/uL (4.0-11.0) Red Blood Count 4.38 x10^6/uL (4.30-5.70) Hemoglobin 12.1 g/dL (13.0-17.5) Hematocrit 37.3 % (39.0-53.0) Mean Corpuscular Volume 85 fL (79-100) Mean Corpuscular Hemoglobin 28 pg (25-35) Mean Corpuscular Hemoglobin Concent 33 g/dL (31-37) Red Cell Distribution Width 15.0 % (11.5-14.5) Platelet Count 407 x10^3/uL (140-400) D-Dimer (Radha) 2.30 ug/mlFEU (0.00-0.50) Sodium Level 146 mmol/L (136-145) Potassium Level 3.6 mmol/L (3.5-5.1) Chloride Level 111 mmol/L (98-107) Carbon Dioxide Level 27 mmol/L (21-32) Anion Gap 8 (6-14) Blood Urea Nitrogen 24 mg/dL (8-26) Creatinine 1.1 mg/dL (0.7-1.3) Estimated GFR (Cockcroft-Gault) 79.8 BUN/Creatinine Ratio 22 (6-20) Glucose Level 99 mg/dL (70-99) Calcium Level 8.8 mg/dL (8.5-10.1) Total Bilirubin 0.8 mg/dL (0.2-1.0) Aspartate Amino Transf (AST/SGOT) 41 U/L (15-37) Alanine Aminotransferase (ALT/SGPT) 53 U/L (16-63) Alkaline Phosphatase 104 U/L (46-116) C-Reactive Protein, Quantitative 86.6 mg/L (0-3.3) Total Protein 7.0 g/dL (6.4-8.2) Albumin 2.2 g/dL (3.4-5.0) Albumin/Globulin Ratio 0.5 (1.0-1.7) Procalcitonin 0.20 ng/mL (0.00-0.10) Laboratory Tests Test 04/06/20 04:00 White Blood Count 13.7 x10^3/uL (4.0-11.0) Red Blood Count 4.38 x10^6/uL (4.30-5.70) Hemoglobin 12.1 g/dL (13.0-17.5) Hematocrit 37.3 % (39.0-53.0) Mean Corpuscular Volume 85 fL (79-100) Mean Corpuscular Hemoglobin 28 pg (25-35) Mean Corpuscular Hemoglobin Concent 33 g/dL (31-37) Red Cell Distribution Width 15.0 % (11.5-14.5) Platelet Count 407 x10^3/uL (140-400) D-Dimer (Radha) 2.30 ug/mlFEU (0.00-0.50) Sodium Level 146 mmol/L (136-145) Potassium Level 3.6 mmol/L (3.5-5.1) Chloride Level 111 mmol/L (98-107) Carbon Dioxide Level 27 mmol/L (21-32) Anion Gap 8 (6-14) Blood Urea Nitrogen 24 mg/dL (8-26) Creatinine 1.1 mg/dL (0.7-1.3) Estimated GFR (Cockcroft-Gault) 79.8 BUN/Creatinine Ratio 22 (6-20) Glucose Level 99 mg/dL (70-99) Calcium Level 8.8 mg/dL (8.5-10.1) Total Bilirubin 0.8 mg/dL (0.2-1.0) Aspartate Amino Transf (AST/SGOT) 41 U/L (15-37) Alanine Aminotransferase (ALT/SGPT) 53 U/L (16-63) Alkaline Phosphatase 104 U/L (46-116) C-Reactive Protein, Quantitative 86.6 mg/L (0-3.3) Total Protein 7.0 g/dL (6.4-8.2) Albumin 2.2 g/dL (3.4-5.0) Albumin/Globulin Ratio 0.5 (1.0-1.7) Procalcitonin 0.20 ng/mL (0.00-0.10) Medications Active Scripts Medications Dose Route/Sig Max Daily Dose Days Date Category Guaifenesin Ac Cough Syrup (Guaifenesin/Codeine Phosphate) 473 Ml Liquid 10 Ml PO PRN Q4HRS PRN MDD 60 Milliliter(s) 04/04/20 Reported Biofreeze (Menthol) 118 Ml Gel..ml. 1 Liban TP PRN Q3HRS PRN 7 04/04/20 Reported Culturelle (Lactobacillus Rhamnosus Gg) 1 Each Cap.sprink 2 Cap PO DAILY 30 04/04/20 Reported Zinc Sulfate 220 Mg Capsule 220 Mg PO DAILY 04/04/20 Reported Trazodone Hcl 50 Mg Tablet 1.5 Tab PO QHS 04/04/20 Reported Melatonin 3 Mg Tablet 3 Tab PO QHS 04/04/20 Reported Lisinopril 10 Mg Tablet 1 Tab PO HS 04/04/20 Reported Flomax (Tamsulosin Hcl) 0.4 Mg Cap.er.24h 0.4 Mg PO DAILY 04/04/20 Reported Aspirin 81 Mg Tab.chew 1 Tab PO DAILY 04/04/20 Reported Norvasc (Amlodipine Besylate) 10 Mg Tablet 10 Mg PO DAILY 01/21/19 Reported Carvedilol (Carvedilol) 3.125 Mg Tablet 1 Tab PO BID 08/06/17 Rx Tylenol (Acetaminophen) 325 Mg Tablet 2 Tab PO PRN Q6HRS PRN 08/02/17 Reported Meclizine Hcl 12.5 Mg Tablet 1 Tab PO BID 03/01/17 Reported Centrum Silver Tablet (Multivits-Min/Fa/Lycopene/Lut) 1 Each Tablet 1 Each PO DAILY 03/01/17 Reported Quetiapine Fumarate 25 Mg Tablet 50 Mg PO QHS 12/08/15 Reported Remeron (Mirtazapine) 15 Mg Tablet 1 Tab PO QHS 12/08/15 Reported Myrbetriq (Mirabegron) 25 Mg Tab.er.24h 25 Mg PO DAILY 12/08/15 Reported Miralax (Polyethylene Glycol 3350) 17 Gm Powd.pack 1 Packet PO BID PRN 12/08/15 Reported Milk Of Magnesia (Magnesium Hydroxide) 2,400 Mg/10 Ml Oral.susp 2,400 Mg PO DAILY PRN 12/08/15 Reported Fluvoxamine Maleate 25 Mg Tablet 50 Mg PO DAILY 12/08/15 Reported Fluvoxamine Maleate 100 Mg Tablet 1 Tab PO DAILY 12/08/15 Reported Docusate Sodium 100 Mg Tablet 200 Mg PO BID 12/08/15 Reported Atorvastatin Calcium 20 Mg Tablet 1 Tab PO QHS 12/08/15 Reported Comments CXR Impression: Ill-defined infiltrate at the lower right lung either atelectasis or infectious in etiology. Follow-up is recommended to confirm resolution. Impression . IMPRESSION: 1. Abnormal x-ray compatible with right lower lobe infiltrate, possible gram positive/gram negative pneumonia. 2. COVID-19, the patient is positive for SARS-CoV-2 from the [facility]. 3. Acute respiratory failure 4. Progressive dyspnea secondary to above. 5. History of cerebrovascular accident. 6. Dementia. 7. Depression. 8. Hypertension. Plan . PLAN: Continue supplemental oxygen, currently on 4 liters N/C Follow CXR Continue ABX Continue steroids Follow Clinical course DVT/GI PPX D/W KAN VASQUEZ MD Apr 06, 2020 12:42
[2020-04-06 15:24] VITALS: BP 147/90
[2020-04-06] MEDS: VANCOMYCIN PER PHARMACY MC PRN (15:33)
[2020-04-06] MEDS ORDERED: VANCOMYCIN 1.5 GM in IV NORMAL SALINE 500ML BAG 500 ML IV SCH (18:00)
[2020-04-06 19:00] VITALS: BP 126/90
[2020-04-06] MEDS: MIRTAZAPINE 15 MG TABLET PO SCH ×2 (22:15→23:00)
[2020-04-06] MEDS: LISINOPRIL 10 MG TABLET PO SCH ×2 (22:15→23:00)
[2020-04-06] MEDS: ATORVASTATIN CALCIUM 20 MG TABLET PO SCH ×2 (22:15→23:00)
[2020-04-06] MEDS: traZODone 50 MG TABLET. PO SCH ×2 (22:15→23:00)
[2020-04-06] MEDS: QUEtiapine 25 MG TABLET. PO SCH ×2 (22:15→23:00)
[2020-04-06 23:00] VITALS: BP 94/80
[2020-04-07] MEDS: PIPERACILLIN/TAZOBACTAM 3.375 GM in IV NORMAL SALINE 50ML 50 ML IV SCH ×3 (05:15→18:00)
[2020-04-07 07:28] VITALS: BP 149/82
[2020-04-07] MEDS: MECLIZINE HCL 12.5 MG TABLET. PO SCH ×2 (10:21→20:40)
[2020-04-07] MEDS: CARVEDILOL 3.125 MG TABLET. PO SCH ×2 (10:21→17:00)
[2020-04-07] MEDS: TAMSULOSIN 0.4 MG CAP.ER.24H. PO SCH (10:21)
[2020-04-07] MEDS: ZINC SULFATE 220 MG CAPSULE. PO SCH (10:21)
[2020-04-07] MEDS: DEXAMETHASONE 4 MG TABLET PO SCH (10:21)
[2020-04-07] MEDS: amLODIPine BESYLATE 10 MG TABLET PO SCH (10:22)
[2020-04-07] MEDS: LACTOBACILLUS RHAMNOSUS GG 1 CAPSULE. PO SCH (10:22)
[2020-04-07] MEDS: ASPIRIN CHEWABLE 81 MG TABLET. PO SCH (10:23)
[2020-04-07] MEDS: ENOXAPARIN 40 MG/0.4 ML SYRINGE. SQ SCH ×2 (10:25→20:39)
[2020-04-07 11:25] VITALS: BP 133/95
--- NOTE | 2020-04-07 12:24 | PDOC ---
PULMONARY PROGRESS NOTES DATE: 04/07/20 TIME: 12:23 Subjective PT. resting on 2 liters N/C No SOA, No Cough, No CP A-febrile overnight less agitated today Vitals Vital Signs Date Time Temp Pulse Resp B/P (MAP) Pulse Ox O2 Delivery O2 Flow Rate FiO2 04/07/20 11:25 97.9 52 20 133/95 (108) 99 Nasal Cannula 1.0 97.9 Comments PT. seen during ID Pandemic Visual exam preformed RRR N/C No distress No edema or rash Labs Laboratory Tests Test 04/06/20 04:00 White Blood Count 13.7 x10^3/uL (4.0-11.0) Red Blood Count 4.38 x10^6/uL (4.30-5.70) Hemoglobin 12.1 g/dL (13.0-17.5) Hematocrit 37.3 % (39.0-53.0) Mean Corpuscular Volume 85 fL (79-100) Mean Corpuscular Hemoglobin 28 pg (25-35) Mean Corpuscular Hemoglobin Concent 33 g/dL (31-37) Red Cell Distribution Width 15.0 % (11.5-14.5) Platelet Count 407 x10^3/uL (140-400) D-Dimer (Radha) 2.30 ug/mlFEU (0.00-0.50) Sodium Level 146 mmol/L (136-145) Potassium Level 3.6 mmol/L (3.5-5.1) Chloride Level 111 mmol/L (98-107) Carbon Dioxide Level 27 mmol/L (21-32) Anion Gap 8 (6-14) Blood Urea Nitrogen 24 mg/dL (8-26) Creatinine 1.1 mg/dL (0.7-1.3) Estimated GFR (Cockcroft-Gault) 79.8 BUN/Creatinine Ratio 22 (6-20) Glucose Level 99 mg/dL (70-99) Calcium Level 8.8 mg/dL (8.5-10.1) Total Bilirubin 0.8 mg/dL (0.2-1.0) Aspartate Amino Transf (AST/SGOT) 41 U/L (15-37) Alanine Aminotransferase (ALT/SGPT) 53 U/L (16-63) Alkaline Phosphatase 104 U/L (46-116) C-Reactive Protein, Quantitative 86.6 mg/L (0-3.3) Total Protein 7.0 g/dL (6.4-8.2) Albumin 2.2 g/dL (3.4-5.0) Albumin/Globulin Ratio 0.5 (1.0-1.7) Procalcitonin 0.20 ng/mL (0.00-0.10) Medications Active Scripts Medications Dose Route/Sig Max Daily Dose Days Date Category Guaifenesin Ac Cough Syrup (Guaifenesin/Codeine Phosphate) 473 Ml Liquid 10 Ml PO PRN Q4HRS PRN MDD 60 Milliliter(s) 04/04/20 Reported Biofreeze (Menthol) 118 Ml Gel..ml. 1 Liban TP PRN Q3HRS PRN 7 04/04/20 Reported Culturelle (Lactobacillus Rhamnosus Gg) 1 Each Cap.sprink 2 Cap PO DAILY 30 04/04/20 Reported Zinc Sulfate 220 Mg Capsule 220 Mg PO DAILY 04/04/20 Reported Trazodone Hcl 50 Mg Tablet 1.5 Tab PO QHS 04/04/20 Reported Melatonin 3 Mg Tablet 3 Tab PO QHS 04/04/20 Reported Lisinopril 10 Mg Tablet 1 Tab PO HS 04/04/20 Reported Flomax (Tamsulosin Hcl) 0.4 Mg Cap.er.24h 0.4 Mg PO DAILY 04/04/20 Reported Aspirin 81 Mg Tab.chew 1 Tab PO DAILY 04/04/20 Reported Norvasc (Amlodipine Besylate) 10 Mg Tablet 10 Mg PO DAILY 01/21/19 Reported Carvedilol (Carvedilol) 3.125 Mg Tablet 1 Tab PO BID 08/06/17 Rx Tylenol (Acetaminophen) 325 Mg Tablet 2 Tab PO PRN Q6HRS PRN 08/02/17 Reported Meclizine Hcl 12.5 Mg Tablet 1 Tab PO BID 03/01/17 Reported Centrum Silver Tablet (Multivits-Min/Fa/Lycopene/Lut) 1 Each Tablet 1 Each PO DAILY 03/01/17 Reported Quetiapine Fumarate 25 Mg Tablet 50 Mg PO QHS 12/08/15 Reported Remeron (Mirtazapine) 15 Mg Tablet 1 Tab PO QHS 12/08/15 Reported Myrbetriq (Mirabegron) 25 Mg Tab.er.24h 25 Mg PO DAILY 12/08/15 Reported Miralax (Polyethylene Glycol 3350) 17 Gm Powd.pack 1 Packet PO BID PRN 12/08/15 Reported Milk Of Magnesia (Magnesium Hydroxide) 2,400 Mg/10 Ml Oral.susp 2,400 Mg PO DAILY PRN 12/08/15 Reported Fluvoxamine Maleate 25 Mg Tablet 50 Mg PO DAILY 12/08/15 Reported Fluvoxamine Maleate 100 Mg Tablet 1 Tab PO DAILY 12/08/15 Reported Docusate Sodium 100 Mg Tablet 200 Mg PO BID 12/08/15 Reported Atorvastatin Calcium 20 Mg Tablet 1 Tab PO QHS 12/08/15 Reported Comments CXR Impression: Ill-defined infiltrate at the lower right lung either atelectasis or infectious in etiology. Follow-up is recommended to confirm resolution. Impression . IMPRESSION: 1. Abnormal x-ray compatible with right lower lobe infiltrate, possible gram positive/gram negative pneumonia. 2. COVID-19, the patient is positive for SARS-CoV-2 from the group home. 3. Acute respiratory failure-- improving 4. Progressive dyspnea secondary to above. 5. History of cerebrovascular accident. 6. Dementia. 7. Depression. 8. Hypertension. Plan . PLAN: Continue supplemental oxygen, currently on 2 liters N/C Follow CXR Continue ABX Continue steroids Follow Clinical course DVT/GI PPX D/W KAN VASQUEZ MD Apr 07, 2020 12:24
[2020-04-07 13:22] LABS: CALCIUM 8.4 mg/dL (8.5-10.1); CREATININE 1.2 mg/dL (0.7-1.3); GFR 72.2; POTASSIUM 3.7 mmol/L (3.5-5.1)
[2020-04-07 13:29] LABS: VANC TR 4.1 mcg/mL (10.0-20.0)
[2020-04-07] MEDS: VANCOMYCIN PER PHARMACY MC PRN ×3 (13:33→13:36)
--- NOTE | 2020-04-07 13:37 | NUR ---
Pharmacy Vancomycin Dosing Note S: Consulted to monitor and dose vancomycin started 04/05/20. O: CARISA CHEEMA is a 69 year old M with Pneumonia Other Antibiotics: ZOSYN LABS: Last BUN: 20 Last Creatinine: 1.2 Creatinine Clearance: 69 mL/min Last WBC: 13.7 Last Procalcitonin: 0.2 Tmax (past 24 hours): 98.6 Microbiology: - I/O: 1540/825 Drug Levels: Last Trough level: 4.1 on 04/07/20 at 1300 Last dose given 04/06/20 at 1827 Vancomycin Dosing: Dosing Weight: Actual Target Trough: 15-20 A: Based on: trough P: 1. Increase Vancomycin 1500 mg IV q12h 2. Follow up Trough level on 04/08/20 at 1330 3. Pharmacy will continue to monitor, follow and adjust therapy as needed. Rajni Simms RPH, 04/07/20 0072
[2020-04-07] MEDS: VANCOMYCIN 1.5 GM in IV NORMAL SALINE 500ML BAG 500 ML IV SCH (15:00)
[2020-04-07 15:10] VITALS: BP 108/69
[2020-04-07 19:00] VITALS: BP 138/80
[2020-04-07] MEDS: LISINOPRIL 10 MG TABLET PO SCH (20:40)
[2020-04-07] MEDS: QUEtiapine 25 MG TABLET. PO SCH (20:40)
[2020-04-07] MEDS: MIRTAZAPINE 15 MG TABLET PO SCH (20:40)
[2020-04-07] MEDS: ATORVASTATIN CALCIUM 20 MG TABLET PO SCH (20:41)
[2020-04-07] MEDS: traZODone 50 MG TABLET. PO SCH (20:41)
[2020-04-07 23:00] VITALS: BP 148/93
--- NOTE | 2020-04-07 23:12 | PN ---
DATE: 04/07/2020 SUBJECTIVE: The patient is resting, slightly propped up in bed, in no apparent distress. He is awake, alert. On questioning him, he denied any complaint, in particular denied any chest pain or shortness of breath. Nursing staff stated he did much better yesterday after cleaning when he was within his recliner. He continued to be somewhat confused. PHYSICAL EXAMINATION: GENERAL: When I examined him, he looked pale, no jaundice, cyanosis, or thyromegaly. No jugular venous distension. No lower limb edema. VITAL SIGNS: Her heart rate was 82, blood pressure was 149/82, temperature was 98.4, respiratory rate was 18 and oxygen saturation was 96% on 1 liter of oxygen. HEAD, EYES, EARS, NOSE AND THROAT: Showed normocephalic, atraumatic. NECK: Supple. HEART: Normal first and second heart sounds. No gallop or murmur. CHEST: Shows central trachea, equal bilateral expansion, air entry. I really could not appreciate any crepitation or rhonchi. ABDOMEN: Distended, soft, nontender. No guarding or rigidity. No organomegaly. All hernial orifice intact. Bowel sounds normal. NEUROLOGIC: He is awake, alert, responding at times appropriately. All cranial nerves are intact. He has middle cerebral artery territory infarct with sided hemiplegia. His intake and output are incompletely recorded. LABORATORY DATA: Showed a hemoglobin 12, hematocrit 37 with platelet count of 13,700, platelet of 407. His chemistry showed a BUN of 24, creatinine 1.1. ASSESSMENT: 1. COVID-19 pneumonia. 2. Superimposed healthcare-associated pneumonia. 3. Acute hypoxic respiratory failure. The patient is normally not on any oxygen at [facility]. 4. Multiple other medical problems including: A. Hypertension. B. Hyperlipidemia. C. Right middle cerebral artery territory infarct with left-sided hemiplegia. PLAN: To continue IV antibiotic. Continue his other medications. Continue DVT prophylaxis. Continue with dexamethasone. I will repeat his labs tomorrow and await the result of the blood cultures and hopefully switch him to oral antibiotic and can be discharged back to [facility]. FREDI CHING MD DR: SAMAN/dago JOB#: [id number] / [id number]
[2020-04-08] MEDS: PIPERACILLIN/TAZOBACTAM 3.375 GM in IV NORMAL SALINE 50ML 50 ML IV SCH ×3 (00:45→12:00)
[2020-04-08] MEDS: VANCOMYCIN 1.5 GM in IV NORMAL SALINE 500ML BAG 500 ML IV SCH ×2 (01:27→13:59)
[2020-04-08 01:30] VITALS: BP 118/59
[2020-04-08 03:00] VITALS: BP 139/74
[2020-04-08 05:21] LABS: HEMATOCRIT 36.9 % (39.0-53.0); HEMOGLOBIN 12.2 g/dL (13.0-17.5); RED BLOOD COUNT 4.34 x10^6/uL (4.30-5.70); RED CELL DISTRIBUTION WIDTH 14.5 % (11.5-14.5); WHITE BLOOD COUNT 9.9 x10^3/uL (4.0-11.0)
[2020-04-08 05:41] LABS: ALBUMIN 2.2 g/dL (3.4-5.0); ALBUMIN/GLOBULIN RATIO 0.5 (1.0-1.7); CALCIUM 8.3 mg/dL (8.5-10.1); CREATININE 1.2 mg/dL (0.7-1.3); GFR 72.2; POTASSIUM 4.2 mmol/L (3.5-5.1); TOTAL PROTEIN 6.8 g/dL (6.4-8.2)
[2020-04-08 07:00] VITALS: BP_SYST 154; BP_SYST 156; BP_DIAS 69; BP_DIAS 92
--- NOTE | 2020-04-08 08:57 | PDOC ---
PULMONARY PROGRESS NOTES DATE: 04/08/20 TIME: 08:57 Subjective Patient not more short of air Vitals Vital Signs Date Time Temp Pulse Resp B/P (MAP) Pulse Ox O2 Delivery O2 Flow Rate FiO2 04/08/20 08:20 Room Air 04/08/20 03:00 98.0 53 18 139/74 (95) 92 1.0 98.0 Comments PT. seen during Visual exam preformed RRR N/C No distress No edema or rash Labs Laboratory Tests Test 04/07/20 13:00 04/08/20 04:00 Sodium Level 145 mmol/L (136-145) 142 mmol/L (136-145) Potassium Level 3.7 mmol/L (3.5-5.1) 4.2 mmol/L (3.5-5.1) Chloride Level 108 mmol/L (98-107) 108 mmol/L (98-107) Carbon Dioxide Level 29 mmol/L (21-32) 28 mmol/L (21-32) Anion Gap 8 (6-14) 6 (6-14) Blood Urea Nitrogen 20 mg/dL (8-26) 19 mg/dL (8-26) Creatinine 1.2 mg/dL (0.7-1.3) 1.2 mg/dL (0.7-1.3) Estimated GFR (Cockcroft-Gault) 72.2 72.2 Glucose Level 105 mg/dL (70-99) 109 mg/dL (70-99) Calcium Level 8.4 mg/dL (8.5-10.1) 8.3 mg/dL (8.5-10.1) Vancomycin Level Trough 4.1 mcg/mL (10.0-20.0) Vancomycin Last Dose Date 04/06/20 Vancomycin Last Dose Time 1800 White Blood Count 9.9 x10^3/uL (4.0-11.0) Red Blood Count 4.34 x10^6/uL (4.30-5.70) Hemoglobin 12.2 g/dL (13.0-17.5) Hematocrit 36.9 % (39.0-53.0) Mean Corpuscular Volume 85 fL (79-100) Mean Corpuscular Hemoglobin 28 pg (25-35) Mean Corpuscular Hemoglobin Concent 33 g/dL (31-37) Red Cell Distribution Width 14.5 % (11.5-14.5) Platelet Count 438 x10^3/uL (140-400) BUN/Creatinine Ratio 16 (6-20) Total Bilirubin 1.0 mg/dL (0.2-1.0) Aspartate Amino Transf (AST/SGOT) 33 U/L (15-37) Alanine Aminotransferase (ALT/SGPT) 42 U/L (16-63) Alkaline Phosphatase 97 U/L (46-116) Total Protein 6.8 g/dL (6.4-8.2) Albumin 2.2 g/dL (3.4-5.0) Albumin/Globulin Ratio 0.5 (1.0-1.7) Laboratory Tests Test 04/07/20 13:00 04/08/20 04:00 Sodium Level 145 mmol/L (136-145) 142 mmol/L (136-145) Potassium Level 3.7 mmol/L (3.5-5.1) 4.2 mmol/L (3.5-5.1) Chloride Level 108 mmol/L (98-107) 108 mmol/L (98-107) Carbon Dioxide Level 29 mmol/L (21-32) 28 mmol/L (21-32) Anion Gap 8 (6-14) 6 (6-14) Blood Urea Nitrogen 20 mg/dL (8-26) 19 mg/dL (8-26) Creatinine 1.2 mg/dL (0.7-1.3) 1.2 mg/dL (0.7-1.3) Estimated GFR (Cockcroft-Gault) 72.2 72.2 Glucose Level 105 mg/dL (70-99) 109 mg/dL (70-99) Calcium Level 8.4 mg/dL (8.5-10.1) 8.3 mg/dL (8.5-10.1) Vancomycin Level Trough 4.1 mcg/mL (10.0-20.0) Vancomycin Last Dose Date 04/06/20 Vancomycin Last Dose Time 1800 White Blood Count 9.9 x10^3/uL (4.0-11.0) Red Blood Count 4.34 x10^6/uL (4.30-5.70) Hemoglobin 12.2 g/dL (13.0-17.5) Hematocrit 36.9 % (39.0-53.0) Mean Corpuscular Volume 85 fL (79-100) Mean Corpuscular Hemoglobin 28 pg (25-35) Mean Corpuscular Hemoglobin Concent 33 g/dL (31-37) Red Cell Distribution Width 14.5 % (11.5-14.5) Platelet Count 438 x10^3/uL (140-400) BUN/Creatinine Ratio 16 (6-20) Total Bilirubin 1.0 mg/dL (0.2-1.0) Aspartate Amino Transf (AST/SGOT) 33 U/L (15-37) Alanine Aminotransferase (ALT/SGPT) 42 U/L (16-63) Alkaline Phosphatase 97 U/L (46-116) Total Protein 6.8 g/dL (6.4-8.2) Albumin 2.2 g/dL (3.4-5.0) Albumin/Globulin Ratio 0.5 (1.0-1.7) Medications Active Scripts Medications Dose Route/Sig Max Daily Dose Days Date Category Guaifenesin Ac Cough Syrup (Guaifenesin/Codeine Phosphate) 473 Ml Liquid 10 Ml PO PRN Q4HRS PRN MDD 60 Milliliter(s) 04/04/20 Reported Biofreeze (Menthol) 118 Ml Gel..ml. 1 Liban TP PRN Q3HRS PRN 7 04/04/20 Reported Culturelle (Lactobacillus Rhamnosus Gg) 1 Each Cap.sprink 2 Cap PO DAILY 30 04/04/20 Reported Zinc Sulfate 220 Mg Capsule 220 Mg PO DAILY 04/04/20 Reported Trazodone Hcl 50 Mg Tablet 1.5 Tab PO QHS 04/04/20 Reported Melatonin 3 Mg Tablet 3 Tab PO QHS 04/04/20 Reported Lisinopril 10 Mg Tablet 1 Tab PO HS 04/04/20 Reported Flomax (Tamsulosin Hcl) 0.4 Mg Cap.er.24h 0.4 Mg PO DAILY 04/04/20 Reported Aspirin 81 Mg Tab.chew 1 Tab PO DAILY 04/04/20 Reported Norvasc (Amlodipine Besylate) 10 Mg Tablet 10 Mg PO DAILY 01/21/19 Reported Carvedilol (Carvedilol) 3.125 Mg Tablet 1 Tab PO BID 08/06/17 Rx Tylenol (Acetaminophen) 325 Mg Tablet 2 Tab PO PRN Q6HRS PRN 08/02/17 Reported Meclizine Hcl 12.5 Mg Tablet 1 Tab PO BID 03/01/17 Reported Centrum Silver Tablet (Multivits-Min/Fa/Lycopene/Lut) 1 Each Tablet 1 Each PO DAILY 03/01/17 Reported Quetiapine Fumarate 25 Mg Tablet 50 Mg PO QHS 12/08/15 Reported Remeron (Mirtazapine) 15 Mg Tablet 1 Tab PO QHS 12/08/15 Reported Myrbetriq (Mirabegron) 25 Mg Tab.er.24h 25 Mg PO DAILY 12/08/15 Reported Miralax (Polyethylene Glycol 3350) 17 Gm Powd.pack 1 Packet PO BID PRN 12/08/15 Reported Milk Of Magnesia (Magnesium Hydroxide) 2,400 Mg/10 Ml Oral.susp 2,400 Mg PO DAILY PRN 12/08/15 Reported Fluvoxamine Maleate 25 Mg Tablet 50 Mg PO DAILY 12/08/15 Reported Fluvoxamine Maleate 100 Mg Tablet 1 Tab PO DAILY 12/08/15 Reported Docusate Sodium 100 Mg Tablet 200 Mg PO BID 12/08/15 Reported Atorvastatin Calcium 20 Mg Tablet 1 Tab PO QHS 12/08/15 Reported Comments CXR Impression: Ill-defined infiltrate at the lower right lung either atelectasis or infectious in etiology. Follow-up is recommended to confirm resolution. Impression . IMPRESSION: 1. Abnormal x-ray compatible with right lower lobe infiltrate, possible gram positive/gram negative pneumonia. 2. COVID-19, the patient is positive for SARS-CoV-2 from the [facility]. 3. Acute respiratory failure-- improving 4. Progressive dyspnea secondary to above. 5. History of cerebrovascular accident. 6. Dementia. 7. Depression. 8. Hypertension. Plan . Discharge today Continue supplemental oxygen, currently on 2 liters N/C Total steroid used 10 days D/W KAN VASQUEZ MD Apr 08, 2020 08:57
[2020-04-08] MEDS: CARVEDILOL 3.125 MG TABLET. PO SCH ×2 (09:54→17:00)
[2020-04-08] MEDS: DEXAMETHASONE 4 MG TABLET PO SCH (09:55)
[2020-04-08] MEDS: LACTOBACILLUS RHAMNOSUS GG 1 CAPSULE. PO SCH (09:55)
[2020-04-08] MEDS: ZINC SULFATE 220 MG CAPSULE. PO SCH (09:55)
[2020-04-08] MEDS: ASPIRIN CHEWABLE 81 MG TABLET. PO SCH (09:55)
[2020-04-08] MEDS: TAMSULOSIN 0.4 MG CAP.ER.24H. PO SCH (09:55)
[2020-04-08] MEDS: MECLIZINE HCL 12.5 MG TABLET. PO SCH (09:56)
[2020-04-08] MEDS: amLODIPine BESYLATE 10 MG TABLET PO SCH (09:56)
[2020-04-08] MEDS: ENOXAPARIN 40 MG/0.4 ML SYRINGE. SQ SCH (09:58)
[2020-04-08] MEDS ORDERED: DEXA4TAB PO (10:30)
[2020-04-08] MEDS ORDERED: AMOX1TAB61 PO (10:30)
--- NOTE | 2020-04-08 10:31 | SNU/HH DC ---
DISCHARGE ORDERS DISCHARGE INFORMATION: DISCHARGE DATE: Apr 08, 2020 FINAL DIAGNOSIS Problems Medical Problems: (1) Pneumonia due to COVID-19 virus Status: Acute CONDITION ON DISCHARGE: Stable CODE STATUS: Code Status: Full CORRECTION: SNF STAY <30 DAYS: Yes POST DISCHARGE ORDERS: ACTIVITY ORDERS: Resume previous activity WEIGHT BEARING STATUS: Full weight bearing, As tolerated DIET AFTER DISCHARGE: Regular CHECKS AFTER DISCHARGE: CHECKS AFTER DISCHARGE: Check blood press - daily, Check blood sugar, ac/hs, Check your Temp as needed, Weigh Yourself Daily TREATMENT/EQUIPMENT ORDERS: ADAPTIVE EQUIPMENT NEEDED: None RESPIRATORY EQUIPMENT NEEDED: Oxygen Physical Therapy For: Evalulation/Treatment Occupational Therapy For: Evaluation/Treatment DISCHARGE MEDICATIONS: Home Meds Active Scripts Dexamethasone (DEXAMETHASONE) 4 Mg Tablet, 4 TAB PO DAILY for PNEUMONIA for 7 Days, #7 TAB Prov:FREDI CHING MD 04/08/20 Amoxicillin/Potassium Clav (AUGMENTIN 875-125 TABLET) 1 Each Tablet, 1 TAB PO BID for HCAP for 7 Days, #14 TAB 0 Refills Prov:FREDI CHING MD 04/08/20 Carvedilol (CARVEDILOL ) 3.125 Mg Tablet, 1 TAB PO BID, #60 TAB 3 Refills Prov:FREDI CHING MD 08/06/17 Reported Medications Guaifenesin/Codeine Phosphate (GUAIFENESIN AC COUGH SYRUP) 473 Ml Liquid, 10 ML PO PRN Q4HRS PRN for cough and congestion MDD 60 Milliliter(s), #240 ML 0 Refills 04/04/20 Menthol (BIOFREEZE) 118 Ml Gel..ml., 1 MARLEN TP PRN Q3HRS PRN for PAIN for 7 Days, #118 ML 0 Refills 04/04/20 Lactobacillus Rhamnosus Gg (CULTURELLE) 1 Each Cap.sprink, 2 CAP PO DAILY for supplement for 30 Days, #60 CAP 0 Refills 04/04/20 Zinc Sulfate (ZINC SULFATE) 220 Mg Capsule, 220 MG PO DAILY for vitamin deficiency , CAP 04/04/20 Trazodone Hcl (TRAZODONE HCL) 50 Mg Tablet, 1.5 TAB PO QHS for insomnia, #30 TAB 1 Refill 04/04/20 Melatonin (MELATONIN) 3 Mg Tablet, 3 TAB PO QHS for insomnia, #30 TAB 2 Refills 04/04/20 Lisinopril (LISINOPRIL) 10 Mg Tablet, 1 TAB PO HS for HTN, #30 TAB 5 Refills 04/04/20 Tamsulosin Hcl (FLOMAX) 0.4 Mg Cap.er.24h, 0.4 MG PO DAILY for BPH, TAB 04/04/20 Aspirin (ASPIRIN) 81 Mg Tab.chew, 1 TAB PO DAILY for Heart health, #30 TAB 3 Refills 04/04/20 Amlodipine Besylate (NORVASC) 10 Mg Tablet, 10 MG PO DAILY for blood pressure, TAB 01/21/19 Acetaminophen (TYLENOL) 325 Mg Tablet, 2 TAB PO PRN Q6HRS PRN for MILD PAIN / TEMP, #30 TAB 08/02/17 Meclizine Hcl (MECLIZINE HCL) 12.5 Mg Tablet, 1 TAB PO BID, #60 TAB 03/01/17 Multivits-Min/Fa/Lycopene/Lut (CENTRUM SILVER TABLET) 1 Each Tablet, 1 EACH PO DAILY, TAB 03/01/17 Quetiapine Fumarate (QUETIAPINE FUMARATE) 25 Mg Tablet, 50 MG PO QHS for psychoactive, TAB 12/08/15 Mirtazapine (REMERON) 15 Mg Tablet, 1 TAB PO QHS, #30 TAB 1 Refill 12/08/15 Mirabegron (MYRBETRIQ) 25 Mg Tab.er.24h, 25 MG PO DAILY 12/08/15 Polyethylene Glycol 3350 (MIRALAX) 17 Gm Powd.pack, 1 PACKET PO BID PRN for CONSTIPATION, #30 PACKET 3 Refills 12/08/15 Magnesium Hydroxide (MILK OF MAGNESIA) 2,400 Mg/10 Ml Oral.susp, 2400 MG PO DAILY PRN for CONSTIPATION 12/08/15 Fluvoxamine Maleate (FLUVOXAMINE MALEATE) 25 Mg Tablet, 50 MG PO DAILY for depressive d.o. 12/08/15 Fluvoxamine Maleate (FLUVOXAMINE MALEATE) 100 Mg Tablet, 1 TAB PO DAILY, #30 TAB 2 Refills 12/08/15 Docusate Sodium (DOCUSATE SODIUM) 100 Mg Tablet, 200 MG PO BID 12/08/15 Atorvastatin Calcium (ATORVASTATIN CALCIUM) 20 Mg Tablet, 1 TAB PO QHS, #30 TAB 5 Refills 12/08/15 FREDI CHING MD Apr 08, 2020 10:31
[2020-04-08 11:00] VITALS: BP 145/90
[2020-04-08 14:36] LABS: VANC TR 16.3 mcg/mL (10.0-20.0)
--- NOTE | 2020-04-08 14:40 | NUR ---
SW following. Reviewed chart and spoke with RN. Patient to discharge today to [facility], , (fax). SNU orders phoned and faxed. pt does reside in LTC at this facility. SW coordinated care with Maykel who requested SW arrange transport. SW completed Medical Necessity form and arranged for transport at 1530 with [facility]. SW updated packet of clinicals to be sent with pt. Pt COVID positive and on 1l 02. RN to call report. No further SW needs at this time.
[2020-04-08 15:00] VITALS: BP 176/90
--- NOTE | 2020-04-08 17:18 | NUR ---
Pt left the unit at approx 1717 by stretcher via EMS. Pt's IV removed without complications. Discharge paperwork and belongings sent with pt at time of discharge. This RN called report to SHADI Dominguez at [facility] at [phone].
== END 2020-04-08 17:27 | DRG 177 ==
LOC: ER 02:04 → 6 SOUTH 06:00 → ED HOLD 06:19 → 6 SOUTH 08:16
PROVIDERS: ADMIT Internal Medicine; ATTEND Internal Medicine
DX: U07.1 COVID-19 (principal); J96.01 Acute respiratory failure with hypoxia; J12.89 Other viral pneumonia; G81.91 Hemiplegia, unspecified affecting right dominant side; G81.94 Hemiplegia, unspecified affecting left nondominant side; J98.11 Atelectasis; E78.00 Pure hypercholesterolemia, unspecified; E78.5 Hyperlipidemia, unspecified; F03.90 Unspecified dementia, unspecified severity, without behavioral disturbance, psychotic disturbance, mood disturbance, and anxiety; F32.9 Major depressive disorder, single episode, unspecified; G40.909 Epilepsy, unspecified, not intractable, without status epilepticus; I10 Essential (primary) hypertension; N40.0 Benign prostatic hyperplasia without lower urinary tract symptoms; Y95 Nosocomial condition; Z86.73 Personal history of transient ischemic attack (TIA), and cerebral infarction without residual deficits; F41.9 Anxiety disorder, unspecified; Z74.01 Bed confinement status
CPT/HCPCS: 36415; 71045; 80048; 80053; 80202; 81001; 83605; 83880; 84145; 84484; 85007; 85025; 85027; 85379; 86140; 93005; 96361; 96374; 96375; J0696; J1650; J2543; J2930; J3370; J7030; J7040; 99285-25; G0378; J8597

== ENCOUNTER 2020-04-18 13:29 | Emergency (ER) | payer MEDICARE, OTHER ==
[~2020-04-18] VITALS: Ht 182.9 cm; Wt 113.0 kg
[~2020-04-18 13:29] MED LIST changes: +AMOX1TAB61 PO; +ASPI-630 PO; +DEXA4TAB PO; +GUAI473L15 PO; +LACT1CAP19 PO; +LISI10TA2 PO; +TAMS0.4C97 PO; +TRAZ-118 PO; +ZINC220C7 PO
[2020-04-18 13:55] LABS: BASO # 0.1 x10^3/uL (0.0-0.2); BASO % 1 % (0-3); EOS # 0.1 x10^3/uL (0.0-0.7); EOS % 1 % (0-3); HEMOGLOBIN 12.7 g/dL (13.0-17.5); LYMPH # 1.6 x10^3/uL (1.0-4.8); LYMPH % 15 % (24-48); MEAN CORPUSCULAR HEMOGLOBIN 28 pg (25-35); MEAN CORPUSCULAR HGB CONC 33 g/dL (31-37); MEAN CORPUSCULAR VOLUME 86 fL (79-100); MONO # 1.4 x10^3/uL (0.0-1.1); MONO % 13 % (0-9); NEUT # 7.8 x10^3/uL (1.8-7.7); NEUT % 71 % (31-73); PLATELET COUNT 360 x10^3/uL (140-400); RED BLOOD COUNT 4.51 x10^6/uL (4.30-5.70); RED CELL DISTRIBUTION WIDTH 15.6 % (11.5-14.5)
[2020-04-18 14:09] LABS: CALCIUM 8.9 mg/dL (8.5-10.1); CREATININE 1.4 mg/dL (0.7-1.3); GFR 60.4; POTASSIUM 4.6 mmol/L (3.5-5.1)
--- NOTE | 2020-04-18 14:13 | EKG ---
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
[2020-04-18 14:14] LABS: ALBUMIN 2.6 g/dL (3.4-5.0); ALBUMIN/GLOBULIN RATIO 0.6 (1.0-1.7); TOTAL BILIRUBIN 0.5 mg/dL (0.2-1.0)
--- NOTE | 2020-04-18 14:29 | RAD ---
EXAM: 3 Views Left Shoulder DATE: 04/18/2020 1:45 PM INDICATION: Reason: L shoulder pain, recent fall, +COVID / Spl. Instructions: / History: COMPARISON: 08/06/2017 FINDINGS: Suboptimal projections limits evaluation. Oblique fracture of the proximal left humeral neck is healed. Within the constraints of osteopenia, no acute fracture or dislocation is seen. AC joint is grossly congruent. Humeral head is not high riding. IMPRESSION: 1. Within the constraints of osteopenia, no acute fracture or dislocation. 2. Old/healed fracture of the proximal humeral neck/shaft. Electronically signed by: Samuel Bruno MD (04/18/2020 2:26 PM) NUBIA
--- NOTE | 2020-04-18 14:37 | PHYS DOC ---
Past Medical History Past Medical History: Anxiety, Dementia, UTI, Other Additional Past Medical Histor: L HEMIPLAGIA; PT IS POOR HISTORIAN (CAITLIN DOTSON APRN) Past Surgical History: Other Additional Past Surgical Histo: PT IS POOR HISTORIAN (CAITLIN DOTSON APRN) Smoking Status: Former Smoker Alcohol Use: None Drug Use: None (CAITLIN DOTSON APRN) General Adult EDM: Chief Complaint: MECHANICAL FALL HPI: HPI: Patient is a 69 year old AA male brought to the emergency department via EMS with reports of diarrhea and a fall while at the detention today. Per the patient's CAREER TECHNOLOGY TEACHER the patient was found on the floor and was not talking to her so they sent her to the emergency room. The patient had been diagnosed with COVID- 19 over 2 weeks ago. The patient is adamant that nothing hurts and he does not want to be here however on physical exam the patient did report pain with palpation of his left shoulder. Patient is not cooperative with history taking therefore HPI is limited. (CAITLIN DOTSON APRN) Review of Systems: Review of Systems: Constitutional: Denies fever Respiratory: Denies cough or shortness of breath. [] Cardiovascular: Denies chest pain or edema. [] GI: Denies abdominal pain, nausea, vomiting,; see HPI Musculoskeletal: See HPI Integument: Denies rash. [] Neurologic: Denies headache (CAITLIN DOTSON APRN) Heart Score: Risk Factors: Risk Factors: DM, Current or recent (<one month) smoker, HTN, HLP, family history of CAD, obesity. Risk Scores: Score 0 - 3: 2.5% MACE over next 6 weeks - Discharge Home Score 4 - 6: 20.3% MACE over next 6 weeks - Admit for Clinical Observation Score 7 - 10: 72.7% MACE over next 6 weeks - Early Invasive Strategies (CAITLIN DOTSON APRN) Allergies: Allergies: Allergies Coded Allergies Type Severity Reaction Last Updated Verified No Known Drug Allergies 03/06/15 No (CAITLIN DOTSON APRN) Physical Exam: PE: Constitutional: Well developed, well nourished, no acute distress, non-toxic appearance, agitated. [] HENT: Normocephalic, atraumatic, bilateral external ears normal, nose normal. [] Eyes: PERRLA, EOMI, conjunctiva normal, no discharge. [] Neck: Normal range of motion, no tenderness, no stridor. [] Cardiovascular:Heart rate regular rhythm, no murmur [] Lungs & Thorax: Respirations even and unlabored, no retractions, no respiratory distress Abdomen: soft, no tenderness [] Skin: Warm, dry, no erythema, no rash. [] Extremities: Bilateral hips: Nontender to palpation, no external rotation or shortening, full range of motion, no edema; left anterior shoulder TTP without crepitus or obvious deformity, ROM intact, no edema; right shoulder: No tenderness, no cyanosis, no clubbing, ROM intact, no edema. [] Neurologic: Alert and oriented X 3, normal motor function, normal sensory function, no focal deficits noted. [] Psychologic: Affect normal, judgement normal, mood normal. [] (CAITLIN DOTSON APRN) Current Patient Data: Labs: Laboratory Tests Test 04/18/20 13:39 White Blood Count 11.0 x10^3/uL (4.0-11.0) Red Blood Count 4.51 x10^6/uL (4.30-5.70) Hemoglobin 12.7 g/dL (13.0-17.5) L Hematocrit 39.0 % (39.0-53.0) Mean Corpuscular Volume 86 fL (79-100) Mean Corpuscular Hemoglobin 28 pg (25-35) Mean Corpuscular Hemoglobin Concent 33 g/dL (31-37) Red Cell Distribution Width 15.6 % (11.5-14.5) H Platelet Count 360 x10^3/uL (140-400) Neutrophils (%) (Auto) 71 % (31-73) Lymphocytes (%) (Auto) 15 % (24-48) L Monocytes (%) (Auto) 13 % (0-9) H Eosinophils (%) (Auto) 1 % (0-3) Basophils (%) (Auto) 1 % (0-3) Neutrophils # (Auto) 7.8 x10^3/uL (1.8-7.7) H Lymphocytes # (Auto) 1.6 x10^3/uL (1.0-4.8) Monocytes # (Auto) 1.4 x10^3/uL (0.0-1.1) H Eosinophils # (Auto) 0.1 x10^3/uL (0.0-0.7) Basophils # (Auto) 0.1 x10^3/uL (0.0-0.2) Sodium Level 140 mmol/L (136-145) Potassium Level 4.6 mmol/L (3.5-5.1) Chloride Level 107 mmol/L (98-107) Carbon Dioxide Level 26 mmol/L (21-32) Anion Gap 7 (6-14) Blood Urea Nitrogen 35 mg/dL (8-26) H Creatinine 1.4 mg/dL (0.7-1.3) H Estimated GFR (Cockcroft-Gault) 60.4 BUN/Creatinine Ratio 25 (6-20) H Glucose Level 99 mg/dL (70-99) Calcium Level 8.9 mg/dL (8.5-10.1) Total Bilirubin 0.5 mg/dL (0.2-1.0) Aspartate Amino Transferase (AST) 24 U/L (15-37) Alanine Aminotransferase (ALT) 61 U/L (16-63) Alkaline Phosphatase 100 U/L (46-116) Total Protein 7.0 g/dL (6.4-8.2) Albumin 2.6 g/dL (3.4-5.0) L Albumin/Globulin Ratio 0.6 (1.0-1.7) L Laboratory Tests 04/18/20 13:39 Laboratory Tests 04/18/20 13:39 Vital Signs: Vital Signs Date Time Temp Pulse Resp B/P (MAP) Pulse Ox O2 Delivery O2 Flow Rate FiO2 04/18/20 13:30 97.9 68 18 105/61 (76) 94 Room Air 97.9 (CAITLIN DOTSON APRN) EKG: EKG: [] (CAITLIN DOTSON APRN) Radiology/Procedures: Radiology/Procedures: PROCEDURE: SHOULDER 2+V LEFT EXAM: 3 Views Left Shoulder DATE: 04/18/2020 1:45 PM INDICATION: Reason: L shoulder pain, recent fall, +COVID / Spl. Instructions: / History: COMPARISON: 08/06/2017 FINDINGS: Suboptimal projections limits evaluation. Oblique fracture of the proximal left humeral neck is healed. Within the constraints of osteopenia, no acute fracture or dislocation is seen. AC joint is grossly congruent. Humeral head is not high riding. IMPRESSION: 1. Within the constraints of osteopenia, no acute fracture or dislocation. 2. Old/healed fracture of the proximal humeral neck/shaft. [] (CAITLIN DOTSON APRN) Course & Med Decision Making: Course & Med Decision Making Pertinent Labs and Imaging studies reviewed. (See chart for details) 69-year-old male brought to the emergency department with reports of diarrhea and a fall today. Work-up included labs and an x-ray of the left shoulder that was negative for any acute findings, CBC revealed a hemoglobin of 12.7 otherwise unremarkable; CMP revealed a BUN 35, creatinine of 1.4 otherwise unremarkable. The patient was given 500 mL of NS in the emergency department. [] (CAITLIN DOTSON APRN) Course & Med Decision Making I have personally interviewed and examined patient. All charts, labs and imaging studies were reviewed. I agreed with the PA/MANAGER RN CASE's findings, exam and plan of care Patient awake and alert in no respiratory distress (REJI MOULTON MD) Dragon Disclaimer: Dragon Disclaimer: This electronic medical record was generated, in whole or in part, using a voice recognition dictation system. (CAITLIN DOTSON APRN) Departure Departure Impression: Primary Impression: Fall Qualified Codes: W19.XXXA - Unspecified fall, initial encounter Additional Impression: Left anterior shoulder pain Disposition: HOME, SELF-CARE Condition: STABLE Referrals: FREDI CHING MD (PCP) Patient Instructions: Fall Prevention in Hospitals, Shoulder Pain, [id number] Additional Instructions: Left shoulder x-ray revealed no acute findings. 12 lead EKG was unremarkable. CMP revealed BUN 35 casino dealer 1.4 otherwise unremarkable. The patient was given 500 ml of NS in the ER. Follow up with PCP in 1-2 days, return to ER for worsening sx. Justicifation of Admission Dx: Justifications for Admission: Justification of Admission Dx: N/A (CAITLIN DOTSON APRN) CAITLIN DOTSON APRN Apr 18, 2020 14:37 REJI MOULTON MD Apr 19, 2020 20:29
[2020-04-18] MEDS ORDERED: IV NORMAL SALINE 500ML BAG 500 ML IV ONE (14:45)
[2020-04-18 16:01] VITALS: BP 96/60
== END 2020-04-18 18:46 | disposition home or self-care (01) ==
LOC: ER 13:29
DX: M25.512 Pain in left shoulder (principal); R19.7 Diarrhea, unspecified; G89.11 Acute pain due to trauma; F03.90 Unspecified dementia, unspecified severity, without behavioral disturbance, psychotic disturbance, mood disturbance, and anxiety; Z87.891 Personal history of nicotine dependence; W18.39XA Other fall on same level, initial encounter; Y93.89 Activity, other specified; Y92.89 Other specified places as the place of occurrence of the external cause; Y99.8 Other external cause status
CPT/HCPCS: 36415; 73030; 80053; 85025; 93005; 99285; J7040

== ENCOUNTER → 2021-01-21 | Outpatient (CLI) | payer MEDICARE, OTHER ==
[~2021-01-21] MED LIST changes: +LISI10TA16 PO; -LISI10TA2 PO; -MECL12.573 PO; +MECL12.582 PO; +MIRT-36 PO; -MIRT15TA PO
--- NOTE | 2021-01-22 08:29 | KCIC ---
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 Technique: Multiplanar multisequence MRI of the brain was performed without intravenous contrast usin g the standard protocol. Findings: No acute infarct. No acute hemorrhage. Mild scattered FLAIR hyperintensities in the subcortical and p eriventricular deep white matter, a nonspecific finding, most commonly seen with chronic small vessel ischemic disease. Moderate cerebral volume loss. Large region of right MCA territory encephalomalacia with areas of hemosiderin deposition consistent with chronic blood products. Wallerian degeneration on the right. Ex vacuo dilatation of the right la teral ventricle. The scalp and calvarium are normal. The pituitary and sella are normal. No Chiari malformation. Mild incompletely characterized degenerative spondylosis of the visualized upper cervical spine. The visualized orbits and globes are normal. The visualized paranasal sinuses are clear. The mastoid air cells are clear. Normal flow voids within the vertebral, basilar, and internal carotid arteries indicating patency. IMPRESSION: 1. No acute infarct, acute hemorrhage, mass, or hydrocephalus. 2. Large area of encephalomalacia in the distribution of the right MCA. 3. Mild chronic small vessel ischemic disease and moderate cerebral volume loss. Electronically signed by: Scott Lopez MD (01/22/2021 8:26 AM) [id number]
== END ==
LOC: KCIC MRI 13:04
PROVIDERS: ATTEND Psychiatry & Neurology Neurology with Special Qualifications in Child Neurology
DX: G81.94 Hemiplegia, unspecified affecting left nondominant side (principal); R42 Dizziness and giddiness; R56.9 Unspecified convulsions; G93.89 Other specified disorders of brain
CPT/HCPCS: 70551